=== PATIENT | female | born 1950 | race Caucasian/White ===

== ENCOUNTER 2019-01-04 13:06 | Inpatient (IN) ==
--- NOTE | 2019-01-04 13:57 | Emergency Department Note ---
History of Present Illness General Chief complaint: Fall Time Seen by Provider: 01/04/19 13:27 Source: patient Mode of arrival: EMS Limitations: no limitations History of Present Illness This patient is a 68-year-old female who presents to the emergency department complaining of right hip pain after a fall. She reports that she was at work sweeping the floor and tripped over an easel and fell onto her right hip. She reports severe pain in the right hip when she attempts to move it. She states she has a very mild, dull 1/10 pain at rest. She reports the pain is more in her right groin than hip. She denies any pain in her lower leg. She denies any numbness, weakness or tingling of her extremities. She states the fall was mechanical in nature and was not associated with any dizziness or lightheadedness. She denies any prior injuries to the right hip or legs. Home Medications Home Medications Medication Instructions Recorded Confirmed Type acetaminophen [Tylenol Extra 1,000 mg PO QID PRN 01/04/19 01/04/19 History Strength] biotin 0 mg PO DAILY 01/04/19 01/04/19 History Allergies Allergy/AdvReac Type Severity Reaction Status Date / Time sulfamethoxazole Allergy Severe SWELLING Verified 01/04/19 15:00 [From Bactrim] OF THROAT, RASH trimethoprim [From Bactrim] Allergy Severe SWELLING Verified 01/04/19 15:00 OF THROAT, RASH Past Med/Surg History Medical History No significant past medical history Social History Preferred Language: Serbian Communication Ability: Effective Power Generation Engineer Required: Yes Beliefs That Will Affect Care: None Current Living Situation: Alone current occupational status: employed Other Information That Helps Us Care for You: No Feels Safe at Home: Yes Safety Concerns: Feels Safe At This Time Smoking Status: Former smoker Hx Alcohol Use: Yes Hx Substance Use: No Review of Systems A total of 10 systems reviewed and were otherwise negative Physical Exam Vital Signs Vital Signs - 24 hr 01/04/19 13:11 01/04/19 15:31 01/04/19 15:53 Temperature 36.8 C Temperature Source Oral Sepsis Recent Fever Within 48 Hours No Sepsis New/Unexplained Change in Mental Status No Sepsis Action Taken by Nursing No Action Required Pulse Rate 93 H Pulse Rate [Left] 103 H Pulse Rhythm [Left] Pulse Strength [Left] Respiratory Rate 18 15 Respiratory Effort / Characteristics Non-Labored Spontaneous Respiratory Depth Normal Respiratory Pattern Regular Blood Pressure 142/76 H Blood Pressure [Left Arm] 133/66 Blood Pressure Mean 98 Blood Pressure Mean [Left Arm] 88 Blood Pressure Position [Left Arm] Lying Pulse Oximetry 97 94 Oxygen Delivery Method Room Air Room Air Room Air 01/04/19 16:00 01/04/19 19:04 Temperature 36.7 C Temperature Source Oral Sepsis Recent Fever Within 48 Hours Sepsis New/Unexplained Change in Mental Status Sepsis Action Taken by Nursing Pulse Rate Pulse Rate [Left] 89 89 Pulse Rhythm [Left] Regular Pulse Strength [Left] Normal Respiratory Rate 20 20 Respiratory Effort / Characteristics Non-Labored Spontaneous Non-Labored Spontaneous Respiratory Depth Normal Normal Respiratory Pattern Blood Pressure Blood Pressure [Left Arm] 125/71 119/70 Blood Pressure Mean Blood Pressure Mean [Left Arm] 89 86 Blood Pressure Position [Left Arm] Lying Lying Pulse Oximetry 91 92 Oxygen Delivery Method Room Air Room Air VITALS: Vitals are noted on the nurse's note and reviewed by myself. Vital signs stable. GENERAL: This is a 68-year-old female, in no acute distress, nondiaphoretic, well-developed well-nourished. SKIN: The skin was without rashes, erythema, edema, or bruising. HEAD: Normocephalic atraumatic. EARS: External auditory canals clear, tympanic membranes pearly lamar without erythema or effusion bilaterally. EYES: Pupils equal round and reactive to light and accommodation. Extraocular movements intact. MOUTH: Mucous membranes moist. NECK: Supple without nuchal rigidity. Cervical spine is nontender. HEART: Regular rate and rhythm without murmurs gallops or rubs. LUNGS: Clear to auscultation bilaterally without wheezes, rales or rhonchi. ABDOMEN: Soft, nontender to palpation. MUSCULOSKELETAL: No obvious deformity. No tenderness to palpation of the lateral right hip. Mild tenderness to palpation of the right anterior hip/groin. No tenderness of the knee, distal leg, ankle or foot. Dorsalis pedis pulse 2+. Full range of motion of the ankle and toes. Decreased range of motion of the right hip secondary to patient discomfort. NEURO: Patient was alert and oriented to person place and time. Distal sensation intact over bilateral lower extremities. Course Consultations Consultation #1: Dr. Sanchez - orthopedics Consultation #2: Kaitlin Cash - [facility] hospitalist Administered Medications Acetaminophen (Tylenol) 650 mg PO Q4H PRN PRN Reason: pain/fever Stop: 02/03/19 16:08 Last Admin: 01/04/19 17:47 Dose: 650 mg Documented by: [id number] Hydromorphone HCl (Dilaudid) 1 mg IV Q2H PRN PRN Reason: Pain Stop: 01/18/19 15:44 Last Admin: 01/04/19 19:03 Dose: 1 mg Documented by: [id number] Lactated Ringer's (Lr) 1,000 mls @ 80 mls/hr IV .[id number] LUIS M Stop: 02/03/19 15:44 Last Admin: 01/04/19 17:17 Dose: 80 mls/hr Documented by: [id number] Ondansetron HCl (Zofran) 4 mg IV Q6H PRN PRN Reason: Nausea Stop: 02/03/19 16:08 Last Admin: 01/04/19 20:38 Dose: 4 mg Documented by: [id number] Senna/Docusate Sodium (Senokot S) 2 tab PO HS LUIS M Stop: 02/03/19 20:59 Last Admin: 01/04/19 20:24 Dose: Not Given Documented by: [id number] Discontinued Medications Hydromorphone HCl (Dilaudid) 0.5 mg IV NOW STA Stop: 01/04/19 14:59 Last Admin: 01/04/19 15:09 Dose: 0.5 mg Documented by: [id number] Cefazolin Sodium (Ancef 3000mg) 65 mls @ 130 mls/hr IV PREOP LUIS M; Protocol Stop: 01/04/19 18:00 Last Admin: 01/04/19 20:26 Dose: Not Given Documented by: [id number] Morphine Sulfate (Morphine Sulfate) 4 mg IV NOW STA Stop: 01/04/19 14:26 Last Admin: 01/04/19 14:31 Dose: 4 mg Documented by: [id number] Ondansetron HCl (Zofran) 4 mg IV NOW STA Stop: 01/04/19 14:26 Last Admin: 01/04/19 14:31 Dose: 4 mg Documented by: [id number] Medical Decision Making Differential Diagnosis Differential diagnosis includes femur fracture, pelvic fracture, hip dislocation, contusion, sprain, among others. Home Medications Current Medication List: was personally reviewed by me Laboratory Data Attestation: I reviewed the patient's lab results. Result diagrams: 01/04/19 14:11 01/04/19 14:11 Lab Results 01/04/19 01/04/19 01/04/19 Range/Units 14:11 14:11 14:11 WBC 10.21 (4.8-10.8) K/uL RBC 4.30 (4.2-5.4) M/uL Hgb 13.8 (12.0-16.0) g/dL Hct 41.2 (37-47) % MCV 95.8 (80-100) fL MCH 32.1 (25-34) pg MCHC 33.5 (32-36) g/dL RDW Std Deviation 46.8 H (36.4-46.3) fL RDW Coeff of Chong 13.5 (11.5-14.5) % Plt Count 211 (130-400) K/uL MPV 10.8 H (7.4-10.4) fL Immature Gran % (Auto) 0.4 % Neut % (Auto) 57.2 % Lymph % (Auto) 31.0 % [place] % (Auto) 9.2 % Eos % (Auto) 1.9 % Baso % (Auto) 0.3 % Immature Gran # (Auto) 0.04 H (0.00-0.02) K/uL Neut # (Auto) 5.85 (1.4-6.5) K/uL Lymph # (Auto) 3.16 (1.2-3.4) K/uL [place] # (Auto) 0.94 H (0.11-0.59) K/uL Eos # (Auto) 0.19 (0-0.5) K/uL Baso # (Auto) 0.03 (0-0.2) K/uL PT 10.1 (9.0-12.0) Seconds INR 1.0 (0.9-1.1) APTT 24.7 (21.0-31.0) Seconds PTT Ratio 0.9 Sodium 138 (136-145) mmol/L Potassium 3.8 (3.5-5.1) mmol/L Chloride 107 (98-107) mmol/L Carbon Dioxide 26 (21-32) mmol/L Anion Gap 5.0 (3-11) BUN 16 (7-18) mg/dl Creatinine 0.65 (0.6-1.2) mg/dl Est Cr Clr Drug Dosing 93.0 ml/min Est GFR ( Amer) 105.7 Est GFR (Non-Af Amer) 91.2 BUN/Creatinine Ratio 24.6 H (10-20) Glucose 134 H (70-99) mg/dl Calcium 8.7 (8.5-10.1) mg/dl 25-OH Vitamin D Total (30-100) ng/ml Urine Color Urine Appearance (Clear) Urine pH (4.5-7.5) Ur Specific [place] (1.000-1.030) Urine Protein (Negative) Urine Glucose (UA) (Negative) Urine Ketones (Negative) Urine Blood (Negative) Urine Nitrite (Negative) Urine Bilirubin (Negative) Urine Urobilinogen (Negative) Ur Leukocyte Esterase (Negative) Nasal Screen MRSA (PCR) (Negative) Blood Type Antibody Screen 01/04/19 01/04/19 01/04/19 Range/Units 14:11 14:11 14:45 WBC (4.8-10.8) K/uL RBC (4.2-5.4) M/uL Hgb (12.0-16.0) g/dL Hct (37-47) % MCV (80-100) fL MCH (25-34) pg MCHC (32-36) g/dL RDW Std Deviation (36.4-46.3) fL RDW Coeff of Chong (11.5-14.5) % Plt Count (130-400) K/uL MPV (7.4-10.4) fL Immature Gran % (Auto) % Neut % (Auto) % Lymph % (Auto) % [place] % (Auto) % Eos % (Auto) % Baso % (Auto) % Immature Gran # (Auto) (0.00-0.02) K/uL Neut # (Auto) (1.4-6.5) K/uL Lymph # (Auto) (1.2-3.4) K/uL [place] # (Auto) (0.11-0.59) K/uL Eos # (Auto) (0-0.5) K/uL Baso # (Auto) (0-0.2) K/uL PT (9.0-12.0) Seconds INR (0.9-1.1) APTT (21.0-31.0) Seconds PTT Ratio Sodium (136-145) mmol/L Potassium (3.5-5.1) mmol/L Chloride (98-107) mmol/L Carbon Dioxide (21-32) mmol/L Anion Gap (3-11) BUN (7-18) mg/dl Creatinine (0.6-1.2) mg/dl Est Cr Clr Drug Dosing ml/min Est GFR ( Amer) Est GFR (Non-Af Amer) BUN/Creatinine Ratio (10-20) Glucose (70-99) mg/dl Calcium (8.5-10.1) mg/dl 25-OH Vitamin D Total 11.9 L (30-100) ng/ml Urine Color Yellow Urine Appearance Clear (Clear) Urine pH 6.0 (4.5-7.5) Ur Specific [place] 1.026 (1.000-1.030) Urine Protein Negative (Negative) Urine Glucose (UA) Negative (Negative) Urine Ketones Negative (Negative) Urine Blood Negative (Negative) Urine Nitrite Negative (Negative) Urine Bilirubin Negative (Negative) Urine Urobilinogen Negative (Negative) Ur Leukocyte Esterase Negative (Negative) Nasal Screen MRSA (PCR) (Negative) Blood Type O Negative Antibody Screen NEGATIVE 01/04/19 Range/Units 17:05 WBC (4.8-10.8) K/uL RBC (4.2-5.4) M/uL Hgb (12.0-16.0) g/dL Hct (37-47) % MCV (80-100) fL MCH (25-34) pg MCHC (32-36) g/dL RDW Std Deviation (36.4-46.3) fL RDW Coeff of Chong (11.5-14.5) % Plt Count (130-400) K/uL MPV (7.4-10.4) fL Immature Gran % (Auto) % Neut % (Auto) % Lymph % (Auto) % [place] % (Auto) % Eos % (Auto) % Baso % (Auto) % Immature Gran # (Auto) (0.00-0.02) K/uL Neut # (Auto) (1.4-6.5) K/uL Lymph # (Auto) (1.2-3.4) K/uL [place] # (Auto) (0.11-0.59) K/uL Eos # (Auto) (0-0.5) K/uL Baso # (Auto) (0-0.2) K/uL PT (9.0-12.0) Seconds INR (0.9-1.1) APTT (21.0-31.0) Seconds PTT Ratio Sodium (136-145) mmol/L Potassium (3.5-5.1) mmol/L Chloride (98-107) mmol/L Carbon Dioxide (21-32) mmol/L Anion Gap (3-11) BUN (7-18) mg/dl Creatinine (0.6-1.2) mg/dl Est Cr Clr Drug Dosing ml/min Est GFR ( Amer) Est GFR (Non-Af Amer) BUN/Creatinine Ratio (10-20) Glucose (70-99) mg/dl Calcium (8.5-10.1) mg/dl 25-OH Vitamin D Total (30-100) ng/ml Urine Color Urine Appearance (Clear) Urine pH (4.5-7.5) Ur Specific [place] (1.000-1.030) Urine Protein (Negative) Urine Glucose (UA) (Negative) Urine Ketones (Negative) Urine Blood (Negative) Urine Nitrite (Negative) Urine Bilirubin (Negative) Urine Urobilinogen (Negative) Ur Leukocyte Esterase (Negative) Nasal Screen MRSA (PCR) Negative (Negative) Blood Type Antibody Screen Imaging Data Attestation: I personally reviewed and interpreted this imaging study as follows: Radiologist's Impression: XR femur RT 2V routine DISCUSSION: Comminuted fracture of the right hip including the femoral neck and intertrochanteric region. Slight. Migration of the femoral shaft. Remainder the femur is unremarkable. No additional acute abnormalities appreciated. There is no evidence for soft tissue swelling. IMPRESSION: Comminuted fracture of the right femoral neck and intertrochanteric region. XR pelvis 1-2V routine DISCUSSION: Comminuted fracture of the right femoral neck and intertrochanteric region. Short segment extension to the proximal femoral shaft. No evidence for acetabular protrusion. All remaining bony structures are intact. There is no evidence for soft tissue swelling. IMPRESSION: Comminuted fracture of the right femoral neck and intertrochanteric region ECG Data Attestation: I personally reviewed and interpreted this ECG as follows: Indication: other (preop) Rate (beats per minute): 99 Rhythm: normal sinus Findings: no acute ischemic change and no ectopy Comparison ECG Date: no prior available Blood Pressure Blood Pressure Findings: Normal blood pressure Blood Pressure Disposition: did not require urgent referral MDM Narrative The patient is a 68-year-old female who presents today complaining of right hip pain after a fall. X-ray showed a right intertrochanteric/femoral neck fracture. Patient was given morphine and then Dilaudid for pain in the emergency department. Preoperative studies were ordered. Orthopedics was consulted. The patient was admitted to the medical service for further evaluation and care of her hip fracture. Attending Attestation: I Dalton Shearer MD independently saw and evaluated this patient and agree with history and physical is otherwise documented by the physician cafeteria assistant. See their note for full details. Impression & Plan Closed right femoral fracture Discharge Plan Visit Data *Final* Discharge Date/Time: 01/04/19 15:53 Chief Complaint: Fall ED Provider: Dalton Shearer ED Midlevel Provider: Laina Stephen Discharge Problem: Closed right femoral fracture Patient Disposition: Admitted As Inpatient Discharge Instructions Interventions: ED Discharge Assessment Last Done: 01/04/19 15:53 Discharge Problem: Closed right femoral fracture Qualifiers: Encounter type: initial encounter Femur location: intertrochanteric Fracture alignment: displaced Qualified Code(s): S72.141A - Displaced intertrochanteric fracture of right femur, initial encounter for closed fracture
--- NOTE | 2019-01-04 14:07 | XRay Report ---
XR femur RT 2V routine CLINICAL HISTORY: fall, right hip/pelvic pain trauma. Pain. COMPARISON: None. DISCUSSION: Comminuted fracture of the right hip including the femoral neck and intertrochanteric reg ion. Slight. Migration of the femoral shaft. Remainder the femur is unremarkable. No additional acute abnormalities appreciated. There is no evide nce for soft tissue swelling. IMPRESSION: Comminuted fracture of the right femoral neck and intertrochanteric region. The above report was generated using voice recognition software. It may contain grammatical, syntax or spelling errors. Electronically signed by: Elia Pineda M.D. 01/04/2019 2:05 PM
--- NOTE | 2019-01-04 14:08 | XRay Report ---
XR pelvis 1-2V routine CLINICAL HISTORY: fall, right hip/pelvic pain pain. Trauma. COMPARISON: None. DISCUSSION: Comminuted fracture of the right femoral neck and intertrochanteric region. Short segment extension to the proximal femoral shaft. No evidence for acetabular protrusion. All remaining bony s tructures are intact. There is no evidence for soft tissue swelling. IMPRESSION: Comminuted fracture of the right femoral neck and intertrochanteric region The above report was generated using voice recognition software. It may contain grammatical, syntax or spelling errors. Electronically signed by: Elia Pineda M.D. 01/04/2019 2:06 PM
[2019-01-04] MEDS ORDERED: MoRPHine SULFATE 4 MG/ML 1 ML CARP\\VIAL IV STA (14:25)
[2019-01-04] MEDS ORDERED: ONDANSETRON INJ 2 MG/ML 2 ML VIAL IV STA (14:25)
[2019-01-04 14:26] LABS: Basophils # (auto) 0.03 K/uL (0-0.2); Basophils % (auto) 0.3 %; Eosinophils # (auto) 0.19 K/uL (0-0.5); Eosinophils % (auto) 1.9 %; Hematocrit (blood only) 41.2 % (37-47); Hemoglobin 13.8 g/dL (12.0-16.0); Immature Granulocytes # (auto) 0.04 K/uL (0.00-0.02); Immature Granulocytes % (auto) 0.4 %; Lymphocytes # (auto) 3.16 K/uL (1.2-3.4); Mean Corpuscular Hgb Conc 33.5 g/dL (32-36); Mean Corpuscular Volume 95.8 fL (80-100); Mean Platelet Volume 10.8 fL (7.4-10.4); Monocytes # (auto) 0.94 K/uL (0.11-0.59); Monocytes % (auto) 9.2 %; Neutrophils # (auto) 5.85 K/uL (1.4-6.5); Neutrophils % (auto) 57.2 %; Platelet Count 211 K/uL (130-400); RDW Coefficient of Variation 13.5 % (11.5-14.5); RDW Standard Deviation 46.8 fL (36.4-46.3); White Blood Count 10.21 K/uL (4.8-10.8)
[2019-01-04 14:32] LABS: Partial Thromboplastin Ratio 0.9; Partial Thromboplastin Time 24.7 Seconds (21.0-31.0); Prothrombin Time 10.1 Seconds (9.0-12.0)
[2019-01-04 14:44] LABS: BUN Creatinine Ratio 24.6 (10-20); Calcium 8.7 mg/dl (8.5-10.1); Est GFR (African American) 105.7; Est GFR (Non-African American) 91.2; Potassium 3.8 mmol/L (3.5-5.1)
[2019-01-04] MEDS ORDERED: HYDROmorphone INJ 0.5 MG/0.5 ML SYR IV STA (14:58)
[2019-01-04 15:08] LABS: Appearance Urine Clear (Clear); Bilirubin Urine Negative (Negative); Blood Urine Negative (Negative); Color Urine Yellow; Glucose Urine UA Negative (Negative); Ketones Urine Negative (Negative); Leukocyte Esterase Urine Negative (Negative); Nitrite Urine Negative (Negative); Protein Urine Negative (Negative); Specific Gravity Urine 1.026 (1.000-1.030); Urobilinogen Urine Negative (Negative)
--- NOTE | 2019-01-04 15:43 | History & Physical Report ---
Date of Service January 04, 2019 Assessment & Plan (1) Hip fracture: pt sustained a mechanical fall /tripped and fell on her rt side while cleaning up the floor in [facility] xray of Hip shows : IMPRESSION: Comminuted fracture of the right femoral neck and intertrochanteric region. orthopedics consulted , appreciate input scheduled for ORIF of rt hip tomorrow ordered for NPO past midnight at baseline pt is fairly healthy pt does not have any medical hx of CAD , prior PR , CHF , cardiac arryhmia , Cxray /EKG in ED wnl acceptable risk for surgery /ORIF of rt hip should proceed for surgery tomorrow /no further cardiac studies indicated CODE STATUS FULL CODE DVT PROPHYLAXIS : SCD AND TEDS -PRE OP post op -risk of DVT is high for limited mobility will need pharmachological anticoagulation :Aspirin 81 mg PO BID /or other regimen per ortho protocol Present on Admission?: Yes History of Present Illness Primary Care Provider: Soraida John This is a 68 yo F with no significant past medical hx 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 for art work and landed on her right side denies of any dizzy spell , SOB , chest heaviness or lightheadedness prior or after fall she did not hit her head or lost conciousness experienced severe pain on right hip after arrival to ER , Xray of right hip shows commuted intertrocheteric fx will be admitted on medical floor Ortho consulted for surgical repair /ORIF of hip fx no complain of fever or chills , no cough , no GI or symptom denies of headache, blurred vision 'no numbness or tingling in any part of the body Allergies Allergy/AdvReac Type Severity Reaction Status Date / Time sulfamethoxazole Allergy Severe SWELLING Verified 01/04/19 15:00 [From Bactrim] OF THROAT, RASH trimethoprim [From Bactrim] Allergy Severe SWELLING Verified 01/04/19 15:00 OF THROAT, RASH Home Medications Home Medications Medication Instructions Recorded Confirmed Type acetaminophen [Tylenol Extra 1,000 mg PO QID PRN 01/04/19 01/04/19 History Strength] biotin 0 mg PO DAILY 01/04/19 01/04/19 History Past Med/Surg History Medical History No significant past medical history Social History Preferred Language: Polish Communication Ability: Effective Guest Service Host Required: Yes Beliefs That Will Affect Care: None Current Living Situation: Alone current occupational status: employed Other Information That Helps Us Care for You: No Feels Safe at Home: Yes Safety Concerns: Feels Safe At This Time Smoking Status: Former smoker Hx Alcohol Use: Yes Hx Substance Use: No Review of Systems All systems reviewed & are unremarkable except as noted in HPI & below Physical Exam Vital Signs (Past 24 Hours): Last Vital Signs Temp 36.8 C 01/04/19 13:11 Pulse 103 H 01/04/19 15:31 Resp 15 01/04/19 15:31 BP 133/66 01/04/19 15:31 Pulse Ox 94 01/04/19 15:31 Physical Exam: GENERAL: No sign of distress, HEENT: Sclera nonicteric, pink-purple bilateral equal reactive to light extraocular muscle intact Normal oral mucosa, neck: No JVD, no thyromegaly, trachea midline Lungs: Clear to auscultate, no wheeze or rales Cardiovascular: Regular S1 and S2, no murmur or gallop, no JVD, no lower extremity edema Abdomen: Soft, nontender, bowel sounds active, no hepatosplenomegaly Extremities: No rash or deformity, normal joint, Neuro: No focal neurological deficit, no dysarthria, no facial droop Psych: Alert awake oriented x3: Euthymic Skin: No rash LYMPH NODES: No cervical lymphadenopathy Code Status & VTE Plan Code Status full code VTE Prophylaxis Plan VTE Prophylaxis will be ordered: Yes
--- NOTE | 2019-01-04 15:44 | XRay Report ---
XR chest 1V portable CLINICAL HISTORY: preop hip fx COMPARISON STUDY: No previous studies for comparison. FINDINGS: The bones soft tissues and hemidiaphragms are normal. The cardiomediastinal silhouette is n ormal. The lungs are clear. The pulmonary vasculature is normal. Minimal left basilar atelectasis IMPRESSION: Minimal left basilar atelectasis. Otherwise negative study. The above report was generated using voice recognition software. It may contain grammatical, syntax or spelling errors. Electronically signed by: Elia Pineda M.D. 01/04/2019 3:43 PM
[2019-01-04] MEDS ORDERED: ALUMINUM/MAGNESIUM SUSP 30 ML UDC PO PRN (16:09)
[2019-01-04] MEDS ORDERED: NALOXONE HCL 0.4 MG/1 ML VIAL/CARP IV PRN (16:09)
[2019-01-04] MEDS ORDERED: BISACODYL 10 MG SUPP PR PRN (16:09)
[2019-01-04] MEDS ORDERED: MAGNESIUM HYDROXIDE SUSP 30 ML UDC PO PRN ×2 (16:09)
[2019-01-04] MEDS ORDERED: POLYETHYLENE (MIRALAX) 17 GM PACK PO PRN (16:09)
[2019-01-04] MEDS ORDERED: CEFAZOLIN 3000MG 65 ML IV SCH (16:09)
[2019-01-04] MEDS ORDERED: SOD PHOSPHATE/SOD BIPHOSPHATE ENEMA 132 ML BTL PR PRN (16:09)
--- NOTE | 2019-01-04 16:33 | Orthopedic Consultation ---
Date of Consultation January 04, 2019 Assessment & Plan (1) Closed intertrochanteric fracture of right hip: X-rays show a comminuted fracture of the right intertrochanteric region of the hip. There is small extension of the superior portion of. Thus the femoral neck is intact. Most of this is a basicervical type fracture with extension to the greater trochanter and distally below the lesser trochanter. I discussed with her the extension up into the femoral neck a little bit but this is acting more like a intertrochanteric fracture that I think would heal fine with open reduction internal fixation with a intertrochanteric nail. I did discuss with her the possibility of nonunion or AVN of head version to a hip arthroplasty but this procedure will be much more bone sparing and more smaller procedure. The risk benefits alternatives of procedure were discussed the patient she wished to proceed. She may eat tonight and then be n.p.o. after midnight tonight for plan for ORIF of the right hip tomorrow morning. History of Present Illness Attending Physician: Jordyn Nielsen MD History of Present Illness The patient is a 68-year-old female who works at [employer]. She was sweeping up for tripped over LOOKK and landed onto the right hip. She had immediate pain and inability to bear weight. She was transferred to the emergency room where x-rays were obtained to demonstrate a comminuted intertrochanteric fracture. She denies previous hip problems. She denies any radicular symptoms. Denies any radicular pain. Denies any neurologic symptoms Allergies Allergy/AdvReac Type Severity Reaction Status Date / Time sulfamethoxazole Allergy Severe SWELLING Verified 01/04/19 15:00 [From Bactrim] OF THROAT, RASH trimethoprim [From Bactrim] Allergy Severe SWELLING Verified 01/04/19 15:00 OF THROAT, RASH Home Medications Home Medications Medication Instructions Recorded Confirmed Type acetaminophen [Tylenol Extra 1,000 mg PO QID PRN 01/04/19 01/04/19 History Strength] biotin 0 mg PO DAILY 01/04/19 01/04/19 History Patient History Medical History No significant past medical history Social History current occupational status: employed Feels Safe at Home: Yes Smoking Status: Former smoker Physical Exam Vital Signs (Past 24 Hours): Last Vital Signs Temp 36.8 C 01/04/19 13:11 Pulse 103 H 01/04/19 15:31 Resp 15 01/04/19 15:31 BP 133/66 01/04/19 15:31 Pulse Ox 94 01/04/19 15:31 Constitutional: WD/WN, vitals as above Neck: normal visual inspection Respiratory: normal respiratory effort Cardiovascular: Rate/Rhythm: regular rate Musculoskeletal: Right lower extremity: Palpable dorsalis pedis pulse. Light touch sensation is intact throughout the foot. She is able to move the toes foot and ankle without difficulty. She has pain with internal and external r otation hip. The limb is externally rotated. Results & Data Diagnostic Findings X-rays demonstrate a comminuted right intertrochanteric fracture. A small extension into the superior region of the femoral neck. The inferior region is intact
[2019-01-04] MEDS: LACTATED RINGER'S 1,000 ML IV SCH (17:17)
[2019-01-04] MEDS: ACETAMINOPHEN 325 MG TAB PO PRN (17:47)
[2019-01-04] MEDS: HYDROmorphone INJ 1 MG/ML SYRINGE IV PRN (19:03)
[2019-01-04] MEDS: DOCUSATE SODIUM/SENNA 50/8.6MG TAB PO SCH (20:24)
[2019-01-04] MEDS: ONDANSETRON INJ 2 MG/ML 2 ML VIAL IV PRN (20:38)
[2019-01-04] MEDS ORDERED: METOCLOPRAMIDE HCL INJ 5 MG/ML 2 ML VIAL IV ONE (22:30)
[2019-01-05] MEDS: ACETAMINOPHEN 1,000 MG/100 ML VIAL IV PRN (01:58)
[2019-01-05] MEDS ORDERED: CEFAZOLIN 2000MG 2,000 MG/15 ML SYR IV SCH (06:00)
[2019-01-05] MEDS ORDERED: fentaNYL citrate 100 MCG/2 ML VIAL ONE (07:01)
[2019-01-05] MEDS ORDERED: MIDAZOLAM HCL 1 MG/ML 2ML VIAL ONE (07:01)
[2019-01-05 07:12] LABS: Hematocrit (blood only) 38.4 % (37-47); Hemoglobin 12.6 g/dL (12.0-16.0); Mean Corpuscular Hgb Conc 32.8 g/dL (32-36); Mean Platelet Volume 10.4 fL (7.4-10.4); Platelet Count 200 K/uL (130-400); RDW Coefficient of Variation 13.7 % (11.5-14.5); RDW Standard Deviation 47.7 fL (36.4-46.3); Red Blood Count 4.04 M/uL (4.2-5.4); White Blood Count 8.72 K/uL (4.8-10.8)
--- NOTE | 2019-01-05 07:18 | Anesthesiology Consultation ---
Date of Service January 05, 2019 Assessment & Plan (1) Encounter for pre-operative examination: Chart Review Chart Review: Acceptable Risk for Surgery and Patient NOT seen in Pre Admission Testing Consults Requested none ASA ASA2 Proposed Anesthesia Anesthesia Type: MAC Spinal Risk / Benefits Reviewed With: PT / POA / Parent / Guardian, Accepts Plan and Informed Consent Obtained NPO Date Last Intake of Fluids: 01/04/19 Time Last Intake of Fluids: 23:59 Date Last Intake of Solids: 01/04/19 Time Last Intake of Solids: 23:59 History Surgery Operation Date: 01/05/19 07:30 Proposed Procedures p Right Hip Troch Nail - Cody Sanchez MD Height/Weight Height: 5 ft 3 in Weight: 95.8 kg Allergies Allergy/AdvReac Type Severity Reaction Status Date / Time sulfamethoxazole Allergy Severe SWELLING Verified 01/04/19 15:00 [From Bactrim] OF THROAT, RASH trimethoprim [From Bactrim] Allergy Severe SWELLING Verified 01/04/19 15:00 OF THROAT, RASH Medications Home Medications Medication Instructions Recorded Confirmed Last Taken acetaminophen [Tylenol Extra 1,000 mg PO QID PRN 01/04/19 01/04/19 Unknown Strength] biotin 0 mg PO DAILY 01/04/19 01/04/19 Unknown Active Medications Generic Name Dose Route Start Last Admin Trade Name Freq PRN Reason Stop Dose Admin Acetaminophen 650 mg 01/04/19 16:09 01/04/19 17:47 Tylenol PO 02/03/19 16:08 650 mg Q4H PRN Administration pain/fever Hydromorphone HCl 1 mg 01/04/19 15:36 01/04/19 19:03 Dilaudid IV 01/18/19 15:44 1 mg Q2H PRN Administration Pain Acetaminophen 1,000 mg in 100 mls @ 400 mls/hr 01/04/19 22:18 01/05/19 02:13 Ofirmev IV 02/03/19 22:17 Infused Q8H PRN Infusion Pain or Fever Ondansetron HCl 4 mg 01/04/19 16:09 01/04/19 20:38 Zofran IV 02/03/19 16:08 4 mg Q6H PRN Administration Nausea Senna/Docusate Sodium 2 tab 01/04/19 21:00 01/04/19 20:24 Senokot S PO 02/03/19 20:59 Not Given HS LUIS M Past Medical History Medical History No significant past medical history Social History Smoking Status: Former smoker Hx Alcohol Use: Yes alcohol intake frequency: holidays/special occasions only Hx Substance Use: No Physical Exam Vital Signs Last Vital Signs Temp 36.5 C 01/05/19 13:08 Pulse 93 H 01/05/19 13:08 Resp 18 01/05/19 13:08 BP 148/85 H 01/05/19 13:08 Pulse Ox 98 01/05/19 13:08 Testing Electrocardiogram Date: 01/04/19 Findings: + NSR @ (99) Normal sinus rhythm Nonspecific ST abnormality Abnormal ECG No previous ECGs available Laboratory Results 01/05/19 06:56 01/05/19 06:56 Blood Type O Negative 01/04/19 14:11 Antibody Screen NEGATIVE 01/04/19 14:11 PT 10.1 Seconds (9.0-12.0) 01/04/19 14:11 INR 1.0 (0.9-1.1) 01/04/19 14:11 APTT 24.7 Seconds (21.0-31.0) 01/04/19 14:11 Urine Color Yellow 01/04/19 14:45 Urine Appearance Clear (Clear) 01/04/19 14:45 Urine pH 6.0 (4.5-7.5) 01/04/19 14:45 Ur Specific [place] 1.026 (1.000-1.030) 01/04/19 14:45 Urine Protein Negative (Negative) 01/04/19 14:45 Urine Glucose (UA) Negative (Negative) 01/04/19 14:45 Urine Ketones Negative (Negative) 01/04/19 14:45 Urine Nitrite Negative (Negative) 01/04/19 14:45 Ur Leukocyte Esterase Negative (Negative) 01/04/19 14:45
[2019-01-05] MEDS ORDERED: BUPIVACAINE 0.5 % 5 MG/1 ML PF 10ML VIAL ONE (07:20)
[2019-01-05 07:49] LABS: BUN Creatinine Ratio 22.2 (10-20); Calcium 8.6 mg/dl (8.5-10.1); Creatinine Clr Calc Pharmacy 82.4 ml/min; Est GFR (African American) 99.7; Est GFR (Non-African American) 86.1; Potassium 3.9 mmol/L (3.5-5.1)
[2019-01-05] MEDS: LACTATED RINGER'S 1,000 ML IV SCH ×2 (08:11→13:47)
[2019-01-05] MEDS ORDERED: KETAMINE HCL INJ 50 MG/ML 10 ML VIAL ONE (09:26)
[2019-01-05] MEDS ORDERED: ePHEDrine sulfate 50 MG/ML AMP IV PRN (09:29)
[2019-01-05] MEDS ORDERED: HYDROmorphone INJ 1 MG/ML SYRINGE IV PRN (09:29)
[2019-01-05] MEDS ORDERED: ATROPINE SULFATE 0.1 MG/ML 10ML SYR IV PRN (09:29)
[2019-01-05] MEDS ORDERED: BUPIVACAINE/EPINEPHRINE 0.5% MPF 1:200,000 30 ML VIAL ONE (09:31)
--- NOTE | 2019-01-05 09:32 | History & Physical Bridge Note ---
Date of Service January 05, 2019 History & Physical Bridge Note I have examined the patient, reviewed the History & Physical and in the interval since the performance of the History & Physical I have noted the following changes of clinical significance: no changes noted
[2019-01-05] MEDS ORDERED: SCOPOLAMINE 1.5 MG TDSY ONE (09:33)
[2019-01-05] MEDS ORDERED: CEFAZOLIN 250 MG/ML 1 GM VIAL ONE ×2 (09:50)
[2019-01-05] MEDS ORDERED: SODIUM CHLORIDE 0.9% INJ 10 ML VIAL ONE (09:50)
[2019-01-05] MEDS ORDERED: DEXAMETHASONE SOD INJ 4 MG/ML VIAL ONE (10:09)
[2019-01-05] MEDS ORDERED: ONDANSETRON INJ 2 MG/ML 2 ML VIAL ONE (10:09)
[2019-01-05] MEDS ORDERED: PROPOFOL IV EMULSION 10 MG/ML 20 ML VIAL IV ONE ×2 (10:09→11:00)
[2019-01-05] MEDS ORDERED: LIDOCAINE HCL 2% 2 ML VIAL/AMP(20MG/ML) INFIL ONE (10:09)
[2019-01-05] MEDS ORDERED: GLYCOPYRROLATE 0.2 MG/ML VIAL ONE (10:09)
[2019-01-05] MEDS ORDERED: PHENYLEPHRINE 100MCG/ML 5ML SYR ONE (10:09)
--- NOTE | 2019-01-05 11:34 | Operative Report ---
Post Operative Report Pre & Post Diagnosis Operation Date: 01/05/19 07:30 Pre-Op Diagnosis: RIGHT HIP FRACTURE Post-Op Diagnosis: RIGHT HIP FRACTURE Procedure Operation Date: 01/05/19 07:30 Actual Procedures p Open Reduction Internal Fixation Right Hip with an intramedullary trochanteric fixation nail- Cody Sanchez MD Surgeon Cody Sanchez MD Machine Hamper Maker None Estimated Blood Loss 100 Findings Consistent with Post-Op Diagnosis Specimens None Drains None Anesthesia Type Spinal MAC Disposition Disposition: Recovery Room Indications The patient is a 60-year-old female sustained a fall onto the right hip. X-rays demonstrate a comminuted right intertrochanteric fracture. She wishes to proceed with open reduction internal fixation. Description of Procedure Risks benefits and alternatives of surgery including but not limited to infection, DVT, PE, pain, stiffness, need for surgery, damage to blood vessels, damage to nerves or risks of anesthesia, were discussed with the patient and her family and they wished to proceed. Patient was identified in the laterality was confirmed and marked. They received a preoperative antibiotic. The patient was transferred to the fracture table. The operative limb was placed in traction and the well leg was placed in a well leg ramirez that was well-padded. The arms were well-padded and placed out of the way of the surgi hattie field. I confirmed reduction of the fracture with fluoroscopy with the patient's fracture table and made adjustments to fracture table alignment is necessary to reduce the fracture appropriately. The hip was then prepped and draped in the usual standard manner with ChloraPrep. I made a longitudinal incision proximal to the greater trochanter. I sharply incised through the skin and then used Bovie electrocautery to achieve hemostasis. I incised through the fascia and then bluntly dissected down to the tip of the greater trochanter. Under fluoroscopic guidance I placed a guide pin into the greater trochanter and ensured proper placement on both AP and lateral fluoroscopy views. Once I was satisfied with the position of the guide. I advanced this distally. I then overreamed with the 17 mm proximal reamer. I then placed a Synthes trochanteric fixation nail into position. The size of the nail was a intermediate sized nail 12 mm in diameter. Then I placed the guide arm onto the nail insertion device made a stab incision more distally and then placed the drill guide for the helical blade. I adjusted the position of the nail as necessary to ensure that the guidepin was center center in the femoral head. Once I was satisfied with the position of the pin advanced it to the appropriate position of the femoral head. I then measured and then reamed the lateral cortex and then reamed down into the femoral head. I then inserted a size [address] I then locked the set screw proximally and then compressed the fracture. Then through a stab incision I placed a interlocking screw through the drill guide. I confirmed hardware placement and maintenance of reduction on AP and lateral fluoroscopy views. Wounds were then thoroughly irrigated. The fascia was closed with interrupted #1 Vicryl suture. Subcutaneous tissues closed with interrupted 2-0 Vicryl suture and the skin with cyn. Sterile dressings applied. All needle and sponge counts were correct at the end of the procedure the patient was transferred to the PACU in stable condition without apparent complication. I attest to the content of the Intraoperative Record and any orders documented therein. Any exceptions are noted below.
--- NOTE | 2019-01-05 11:45 | Fluoroscopy Report ---
FL hip RT 2-3V CLINICAL HISTORY: RIGHT HIP IM GOPI COMPARISON STUDY: Right femur 01/04/2019. FLUOROSCOPY TIME: 1 minute and 50 seconds. FINDINGS: 5 fluoroscopic spot images of the right hip were submitted. There is a proximal femoral int ramedullary gopi with interlocking femoral neck pin. This traverses the intertrochanteric fracture. Th e alignment is near-anatomic. The hardware is intact. IMPRESSION: Fluoroscopy provided for internal fixation of a right hip fracture. Electronically signed by: Michael Kemp M.D. 01/05/2019 11:44 AM
[2019-01-05] MEDS ORDERED: NALOXONE HCL 0.4 MG/1 ML VIAL/CARP IV PRN (12:41)
--- NOTE | 2019-01-05 13:21 | Anesthesiology Progress Note ---
Date of Service January 05, 2019 Anesthesia Post Procedure Vital Signs Vital Signs: Temp Pulse Pulse Pulse Pulse Resp BP 01/05/19 13:08 36.5 C 93 H 18 148/85 H 01/05/19 12:30 37.0 C 93 H 143/87 H 01/05/19 12:15 89 16 134/88 01/05/19 12:05 88 18 133/77 01/05/19 11:55 88 18 135/70 01/05/19 11:45 89 18 112/72 01/05/19 11:38 36.7 C 93 H 18 119/55 L 01/05/19 08:23 36.9 C 97 H 14 152/82 H 01/05/19 06:54 36.7 C 96 H 17 138/72 01/04/19 23:26 36.9 C 89 18 126/77 01/04/19 19:04 89 20 119/70 01/04/19 16:00 36.7 C 89 20 125/71 01/04/19 15:31 103 H 15 133/66 Pulse Ox 01/05/19 13:08 98 01/05/19 12:30 94 01/05/19 12:15 96 01/05/19 12:05 96 01/05/19 11:55 99 01/05/19 11:45 100 01/05/19 11:38 99 01/05/19 08:23 95 01/05/19 06:54 92 01/04/19 23:26 95 01/04/19 19:04 92 01/04/19 16:00 91 01/04/19 15:31 94 Pain Intensity Right Hip: Pain Intensity: 5 Notes Mental Status: alert / awake / arousable Patient Amnestic to Procedure: Yes Nausea / Vomiting: adequately controlled Pain: adequately controlled Airway Patency, RR, SpO2: stable & adequate BP & HR: stable & adequate Hydration State: stable & adequate Neuraxial Anesthesia: was administered and sensory block is resolving Anesthetic Complications: no major complications apparent and Pt Satisfied with anesthetic care
[2019-01-05] MEDS: HYDROmorphone INJ 1 MG/ML SYRINGE IV PRN ×2 (16:30→20:59)
--- NOTE | 2019-01-05 18:04 | Hospitalist Progress Note ---
Date of Service January 05, 2019 Assessment & Plan (1) Hip fracture: S/P Open Reduction Internal Fixation Right Hip with an intramedullary trochanteric fixation nail- by Dr Sanchez, POD # 1 recovering well post op ordered for PT/OT pain adequately controlled with current pain meds pt sustained a mechanical fall /tripped and fell on her rt side while cleaning up the floor in day care xray of Hip shows : IMPRESSION: Comminuted fracture of the right femoral neck and intertrochanteric region. orthopedics consulted , appreciate input CODE STATUS FULL CODE DVT PROPHYLAXIS : SCD AND TEDS -PRE OP post op -risk of DVT is high for limited mobility will need pharmachological anticoagulation :Aspirin 81 mg PO BID /or other regimen per ortho protocol Subjective s/p right hip surgery today no complain of SOB , chest pain or fever pain on right hip improved after surgery/except at the surgical incision site Physical Exam Vital Signs (Past 24 Hours): Last Vital Signs Temp 36.9 C 01/05/19 15:41 Pulse 100 H 01/05/19 15:41 Resp 16 01/05/19 17:52 BP 167/83 H 01/05/19 15:41 Pulse Ox 96 01/05/19 15:41 Physical Exam: GENERAL: No sign of distress, HEENT: Sclera nonicteric, pink-purple bilateral equal reactive to light extraocular muscle intact Normal oral mucosa, neck: No JVD, no thyromegaly, trachea midline Lungs: Clear to auscultate, no wheeze or rales Cardiovascular: Regular S1 and S2, no murmur or gallop, no JVD, no lower extremity edema Abdomen: Soft, nontender, bowel sounds active, Extremities: S/P Rt hip surgery Neuro: No focal neurological deficit, no dysarthria, no facial droop Psych: Alert awake oriented x3: Euthymic Skin: No rash LYMPH NODES: No cervical lymphadenopathy
[2019-01-05] MEDS: CEFAZOLIN 2000MG 2,000 MG/15 ML SYR IV SCH (18:05)
[2019-01-05] MEDS: DOCUSATE SODIUM/SENNA 50/8.6MG TAB PO SCH (21:31)
[2019-01-06] MEDS: HYDROmorphone INJ 1 MG/ML SYRINGE IV PRN (00:26)
[2019-01-06] MEDS: CEFAZOLIN 2000MG 2,000 MG/15 ML SYR IV SCH (01:58)
[2019-01-06] MEDS: LACTATED RINGER'S 1,000 ML IV SCH (01:58)
[2019-01-06] MEDS: OXYCODONE HCL IR 5 MG TAB (IMMEDIATE RELEASE) PO PRN ×4 (05:43→20:29)
[2019-01-06 07:39] LABS: Basophils # (auto) 0.01 K/uL (0-0.2); Basophils % (auto) 0.1 %; Eosinophils # (auto) 0.09 K/uL (0-0.5); Hematocrit (blood only) 34.7 % (37-47); Hemoglobin 11.2 g/dL (12.0-16.0); Immature Granulocytes # (auto) 0.02 K/uL (0.00-0.02); Immature Granulocytes % (auto) 0.2 %; Lymphocytes # (auto) 2.59 K/uL (1.2-3.4); Lymphocytes % (auto) 28.5 %; Mean Corpuscular Hgb Conc 32.3 g/dL (32-36); Mean Corpuscular Volume 97.5 fL (80-100); Mean Platelet Volume 10.7 fL (7.4-10.4); Monocytes # (auto) 1.15 K/uL (0.11-0.59); Monocytes % (auto) 12.6 %; Neutrophils # (auto) 5.24 K/uL (1.4-6.5); Neutrophils % (auto) 57.6 %; Platelet Count 162 K/uL (130-400); RDW Coefficient of Variation 13.9 % (11.5-14.5); RDW Standard Deviation 49.9 fL (36.4-46.3); Red Blood Count 3.56 M/uL (4.2-5.4)
[2019-01-06 08:05] LABS: BUN Creatinine Ratio 23.8 (10-20); Est GFR (African American) 93.4; Est GFR (Non-African American) 80.6; Potassium 4.2 mmol/L (3.5-5.1)
[2019-01-06] MEDS: ACETAMINOPHEN 1,000 MG/100 ML VIAL IV PRN ×2 (08:15→22:05)
--- NOTE | 2019-01-06 09:15 | Orthopedic Progress Note ---
Date of Service January 06, 2019 Assessment & Plan (1) Closed intertrochanteric fracture of right hip: POD #1, Right hip ORIF Medium Troch Nail PT/ OT- WBAT DVT proph- Lovenox D/C planning- as per primary team, likely rehab or SNF as she has multiple steps and lives alone. Subjective POD #1, Having some hip pain. Denies SOB, CP, N/V. Physical Exam Vital Signs (Past 24 Hours): Last Vital Signs Temp 37.0 C 01/06/19 07:49 Pulse 85 01/06/19 07:49 Resp 18 01/06/19 07:49 BP 133/67 01/06/19 07:49 Pulse Ox 92 01/06/19 07:49 Physical Exam: Dressings c/d/i, no drainage, toes and ankle mobile, no calf tenderness, A&Ox3. VSS.
[2019-01-06] MEDS: ENOXAPARIN INJ 40 MG/0.4 ML SYR SQ SCH (12:20)
--- NOTE | 2019-01-06 14:15 | Anesthesiology Progress Note ---
Date of Service January 06, 2019 Anesthesia Post Procedure Vital Signs Vital Signs: Temp Pulse Pulse Resp BP Pulse Ox Pulse Ox 01/06/19 12:07 37.0 C 92 H 22 127/79 92 01/06/19 11:17 92 01/06/19 07:49 37.0 C 85 18 133/67 92 01/06/19 05:39 94 01/06/19 04:00 36.8 C 96 H 18 112/69 91 01/05/19 23:05 36.8 C 98 H 18 144/68 H 92 01/05/19 19:33 37.4 C 98 H 19 130/78 91 01/05/19 17:52 16 01/05/19 15:41 36.9 C 100 H 16 167/83 H 96 01/05/19 14:39 36.8 C 100 H 18 164/81 H 96 Pain Intensity Right Hip: Pain Intensity: 6 Notes Mental Status: alert / awake / arousable Patient Amnestic to Procedure: Yes Nausea / Vomiting: adequately controlled Pain: adequately controlled Airway Patency, RR, SpO2: stable & adequate BP & HR: stable & adequate Hydration State: stable & adequate Neuraxial Anesthesia: was administered and sensory block resolved Anesthetic Complications: no major complications apparent and Pt Satisfied with anesthetic care
--- NOTE | 2019-01-06 15:41 | Hospitalist Progress Note ---
Date of Service January 06, 2019 Assessment & Plan (1) Hip fracture: S/P Open Reduction Internal Fixation Right Hip with an intramedullary trochanteric fixation nail- by Dr Sanchez, POD #2 recovering well post op per Ortho wt bearing as tolerated with walker out pt follow up with Ortho in 2 weeks pt will benefit with rehab ( has 10 steps to get into her appointment ) ordered for PT/OT pain adequately controlled with current pain meds pt sustained a mechanical fall /tripped and fell on her rt side while cleaning up the floor in day care xray of Hip shows : IMPRESSION: Comminuted fracture of the right femoral neck and intertrochanteric region. orthopedics consulted , appreciate input CODE STATUS FULL CODE DVT PROPHYLAXIS : sub q Lovenox DISPOSITION: plan to discharge to rehab when accepted Subjective sitting up on chair feels much better rt hip pain with movement no fever or chills Physical Exam Vital Signs (Past 24 Hours): Last Vital Signs Temp 36.8 C 01/06/19 15:21 Pulse 91 H 01/06/19 15:21 Resp 18 01/06/19 15:21 BP 136/78 01/06/19 15:21 Pulse Ox 94 01/06/19 15:21 Physical Exam: GENERAL: No sign of distress, HEENT: Sclera nonicteric, pink-purple bilateral equal reactive to light extraocular muscle intact Normal oral mucosa, neck: No JVD, no thyromegaly, trachea midline Lungs: Clear to auscultate, no wheeze or rales Cardiovascular: Regular S1 and S2, no murmur or gallop, no JVD, no lower extremity edema Abdomen: Soft, nontender, bowel sounds active, no hepatosplenomegaly Extremities: s/p rt hip surgery Neuro: No focal neurological deficit, no dysarthria, no facial droop Psych: Alert awake oriented x3: Euthymic Skin: No rash LYMPH NODES: No cervical lymphadenopathy
[2019-01-06] MEDS: POLYETHYLENE (MIRALAX) 17 GM PACK PO SCH (20:29)
[2019-01-06] MEDS: DOCUSATE SODIUM 100 MG CAP PO SCH (20:29)
[2019-01-06] MEDS: DOCUSATE SODIUM/SENNA 50/8.6MG TAB PO SCH (20:29)
[2019-01-07] MEDS: OXYCODONE HCL IR 5 MG TAB (IMMEDIATE RELEASE) PO PRN ×3 (03:28→16:52)
--- NOTE | 2019-01-07 07:13 | Orthopedic Progress Note ---
Date of Service January 07, 2019 Assessment & Plan (1) Closed intertrochanteric fracture of right hip: POD #2, Right hip ORIF Medium Troch Nail PT/ OT- WBAT DVT proph- Lovenox D/C planning- as per primary team, likely rehab or SNF as she has multiple steps and lives alone. Subjective POD #2, Having some hip pain. Denies SOB, CP, N/V. Has been ambulating. Physical Exam Vital Signs (Past 24 Hours): Last Vital Signs Temp 37.3 C 01/07/19 06:13 Pulse 93 H 01/07/19 06:13 Resp 18 01/07/19 06:13 BP 134/73 01/07/19 06:13 Pulse Ox 97 01/07/19 06:13 Physical Exam: Incision c/d/i, no erythema or drainage. Toes mobile, no calf t enderness. Sensation and n/v status intact.
[2019-01-07] MEDS: POLYETHYLENE (MIRALAX) 17 GM PACK PO SCH ×3 (07:55→20:01)
[2019-01-07] MEDS: DOCUSATE SODIUM 100 MG CAP PO SCH ×2 (07:55→20:01)
[2019-01-07] MEDS: ENOXAPARIN INJ 40 MG/0.4 ML SYR SQ SCH (12:00)
--- NOTE | 2019-01-07 16:08 | Hospitalist Progress Note ---
Date of Service January 07, 2019 Assessment & Plan (1) Hip fracture: S/P Open Reduction Internal Fixation Right Hip with an intramedullary trochanteric fixation nail- by Dr Sanchez, POD #3 recovering well post op per Ortho wt bearing as tolerated with walker referral made to [facility] waiting for insurance approval out pt follow up with Ortho in 2 weeks DVT prophylaxis with Aspirin 81 mg BID for 30 days pt sustained a mechanical fall /tripped and fell on her rt side while cleaning up the floor in day care xray of Hip shows : IMPRESSION: Comminuted fracture of the right femoral neck and intertrochanteric region. orthopedics consulted , appreciate input CODE STATUS FULL CODE DVT PROPHYLAXIS : sub q Lovenox will be discharged with Aspirin 81 mg BID for 30 days at rehab DISPOSITION: plan to discharge to rehab /[facility] tomorrow after insurance approval Family will provide transportation Subjective sitting up on chair has minimum pain on rt hip area no other complain waiting for insurance approval for acute rehab Physical Exam Vital Signs (Past 24 Hours): Last Vital Signs Temp 37.5 C 01/07/19 15:33 Pulse 96 H 01/07/19 15:06 Resp 19 01/07/19 15:06 BP 136/79 01/07/19 15:06 Pulse Ox 94 01/07/19 15:06 Physical Exam: GENERAL: No sign of distress, HEENT: Sclera nonicteric, pink-purple bilateral equal reactive to light extraocular muscle intact Normal oral mucosa, neck: No JVD, no thyromegaly, trachea midline Lungs: Clear to auscultate, no wheeze or rales Cardiovascular: Regular S1 and S2, no murmur or gallop, no JVD, no lower extremity edema Abdomen: Soft, nontender, bowel sounds active, no hepatosplenomegaly Extremities: s/p Rt hip repair Neuro: No focal neurological deficit, no dysarthria, no facial droop Psych: Alert awake oriented x3: Euthymic Skin: No rash LYMPH NODES: No cervical lymphadenopathy
[2019-01-07] MEDS: DOCUSATE SODIUM/SENNA 50/8.6MG TAB PO SCH (20:56)
[2019-01-08] MEDS: OXYCODONE HCL IR 5 MG TAB (IMMEDIATE RELEASE) PO PRN (03:23)
[2019-01-08] MEDS: ACETAMINOPHEN 325 MG TAB PO PRN ×2 (09:08→13:16)
[2019-01-08] MEDS: DOCUSATE SODIUM 100 MG CAP PO SCH (09:09)
[2019-01-08] MEDS: ONDANSETRON INJ 2 MG/ML 2 ML VIAL IV PRN (09:10)
--- NOTE | 2019-01-08 11:49 | Hospitalist Progress Note ---
Date of Service January 08, 2019 Assessment & Plan (1) Hip fracture: Mechanical Fall Right Hip Fracture S/P ORIF POD # [address] Sanchez X ray:: Comminuted fracture of the right femoral neck and intertrochanteric region Pain is controlled Appreciate Orthopedics Input Weight bearing as tolerated with walker Planned to be discharged to [facility] Needs Follow up with Orthopedics in 2 weeks Continue Aspirin 81 mg BID for 30 days for DVT Prophylaxis Code Status Full Code DVT Px: SQ Lovenox Disposition: Plan to discharge to Rehab facility Subjective Patient is seen and examined at bedside Patent feels nauseous earlier today Denies chest pain, SOB, dizziness, abd pain Right hip pain is controlled No other complaints Physical Exam Vital Signs (Past 24 Hours): Last Vital Signs Temp 36.9 C 01/08/19 11:02 Pulse 91 H 01/08/19 06:58 Resp 18 01/08/19 06:58 BP 119/76 01/08/19 06:58 Pulse Ox 93 01/08/19 06:58 Physical Exam: Physical Exam: Vitals signs as noted above General Appearance:t Obese, no apparent distress Head: normocephalic, Atraumatic Eyes: normal inspection, EOMI Neck: supple, Trachea midline Respiratory/Chest: Normal breath sounds, CTA Cardiovascular: S1, S2, No murmur Abdomen/GI:Soft, Non tender, Bowel sounds present Extremities/Musculoskelatal:normal inspection, no edema, Right Hip surgical site in cyn Neurologic/Psych:AAOX3, grossly no focal neurological deficits Skin: normal color, warm
--- NOTE | 2019-01-08 11:56 | Discharge Summary ---
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 -she was cleaning the floor while sweeping and walking backwards she tripped on an Easel for art work and landed on her right side denies of any dizzy spell , SOB , chest heaviness or lightheadedness prior or after fall she did not hit her head or lost conciousness experienced severe pain on right hip after arrival to ER , Xray of right hip shows commuted intertrocheteric fx will be admitted on medical floor Ortho consulted for surgical repair /ORIF of hip fx no complain of fever or chills , no cough , no GI or symptom denies of headache, blurred vision 'no numbness or tingling in any part of the body Admission Exam Per Admitting Provider GENERAL: No sign of distress, HEENT: Sclera nonicteric, pink-purple bilateral equal reactive to light extraocular muscle intact Normal oral mucosa, neck: No JVD, no thyromegaly, trachea midline Lungs: Clear to auscultate, no wheeze or rales Cardiovascular: Regular S1 and S2, no murmur or gallop, no JVD, no lower extremity edema Abdomen: Soft, nontender, bowel sounds active, no hepatosplenomegaly Extremities: No rash or deformity, normal joint, Neuro: No focal neurological deficit, no dysarthria, no facial droop Psych: Alert awake oriented x3: Euthymic Skin: No rash LYMPH NODES: No cervical lymphadenopathy Principal Diagnosis Discharge Information Discharge Diagnosis RIGHT HIP FRACTURE S/P FALL Discharge Goals Decrease discomfort,Improve disease control, Improve function Discharge Activity Limitations Resume your previous activity Discharge Data Allergies Allergy/AdvReac Type Severity Reaction Status Date / Time sulfamethoxazole Allergy Severe SWELLING Verified 01/04/19 15:00 [From Bactrim] OF THROAT, RASH trimethoprim [From Bactrim] Allergy Severe SWELLING Verified 01/04/19 15:00 OF THROAT, RASH Consultations 01/04/19 14:39 ED Decision to Admit Stat 01/04/19 15:38 Consult Orthopedic Surgery Stat 01/04/19 16:09 Consult Case Management - Discharge Planning Routine Consult Case Management - Discharge Planning Routine 01/05/19 12:41 Consult Case Management - Discharge Planning Routine Procedures Performed Operation Date: 01/05/19 07:30 Actual Procedures p Open Reduction Internal Fixation Right Hip - Cody Sanchez MD Pelvic X ray: Comminuted fracture of the right femoral neck and intertrochanteric region CXR: Minimal left basilar atelectasis. Otherwise negative study. Ordered Studies 01/05/19 08:00 FL fluoroscopy <1hr Routine FL hip RT 2-3V Routine Hospital Course (1) Hip fracture: Mechanical Fall Right Hip Fracture S/P ORIF POD # [address] Sanchez X ray:: Comminuted fracture of the right femoral neck and intertrochanteric region Pain is controlled Appreciate Orthopedics Input Weight bearing as tolerated with walker Planned to be discharged to [facility] Follow up with Orthopedics in 2 weeks Continue Aspirin 81 mg BID for 30 days for DVT Prophylaxis Code Status Full Code DVT Px: SQ Lovenox Disposition: Plan to discharge to Rehab facility Total Time Total Time Spent Total Time Spent (In Minutes): 35 minutes Total Time Includes: Examination of the Patient, Discharge Planning, Medication Reconciliation, Communication With Other Providers and Other Discharge Plan Discharge Items Patient Disposition: Transfer Inpatient Rehab Fac Reason For Visit: HIP FRACTURE Discharge Diagnosis: RIGHT HIP FRACTURE S/P FALL Discharge Goals: Decrease discomfort, Improve disease control and Improve function Activity: Resume your previous activity Non-emergency contact: Primary Care Provider and Surgeon Call non-emergency contact if: you have any medication questions, your symptoms worsen, your pain is not controlled, your pain is worsening, your pain is unusual for you, your pain is concerning for you, you have a fever, your wound has increased redness, your wound has increased drainage and your wound pain has increased Follow-up/Referrals: Soraida John [Primary Care Provider] - Cody Sanchez MD [Surgeon] - (ORTHOPEDICS FOLLOW UP IN 2 WEEKS ) Diet: Regular Addtl Provider Instructions: Follow up with your PCP in 1 week after being discharged from rehab facility FOLLOW UP WITH ORTHOPEDICS IN 2 WEEKS CONTINUE PHYSICAL THERAPY /OCCUPATIONAL THERAPY AT [facility] DVT PROPHYLAXIS ASPIRIN 81 MG BY MOUTH TWICE DAILY FOR 1 MONTH TAKE WITH FULL STOMACH UOC DISCHARGE INSTRUCTIONS: HIP FRACTURE SELF CARE INSTRUCTIONS: A. You are to ambulate with a walker or crutches for approximately 6 weeks. B. You are WEIGHT BEARING TOLERATED on your operative lower extremity for at least 6 weeks. C. Wear low heeled shoes with non-slip soles D. Be sure that your floors are free of things that could trip you throw rugs, electrical cords, and small objects. Avoid wet and waxed floors, especially with crutches/walker/cane. E. Try to walk several times a day with rest periods between. F. You may shower 48 hours after surgery and get the incision area wet, but DO NOT soak or submerge incision area in water. (No baths, swimming pools, hot tubs) G. You may have a large, band-aid like dressing over your incision (Aquacel). This will remain on your incision for 7 days, and then can be removed. You CAN shower with this on. If incision is leaking through the dressing, please call the office . H. Do NOT apply soap or any ointment/lotions directly over incision. I. You may use ice as needed to operative site. SPECIAL CARE INSTRUCTIONS: VERY IMPORTANT TO READ AND REVIEW A. You may be at risk for phlebitis or blood clots. a. Wear surgical stockings (ADRYAN hose) for 2 weeks after surgery to improve circulation and reduce swelling. b. Take LOVENOX 40mg SQ daily for 4 weeks or as directed. This is your blood thinner. c. If you are on Coumadin- you will have daily/weekly blood work to monitor your levels. This will be done by either your family physician/centerless grinder tender (if you are on Coumadin chronically) versus your orthopedic surgeon. Expect a phone call the day of or the day after your blood work is drawn to adjust your dose accordingly. B. There are a few signs you need to watch for after you are home. Call [facility] at [phone] if you experience any of the following: a. If you have a temperature of 101 degrees or higher. b. Sudden increase in pain in your hip not relieved by rest or pain medication. c. Any fluid or drainage from the incision; redness of the incision. d. Shortness of breath or chest pain. C. Call your physician if: a. Temperature is greater than 101 degrees (F). b. Pain is not relieved by prescribed pain medications. c. Increase drainage or redness from incision. d. Unanswered questions or concerns. D. Pain Medication: a. You will be prescribed pain medication upon discharge that should last till your first post-operative appointment. b. If you experience nausea and/or skin rash, discontinue this medication and contact our office for an alternative medication. c. Caution- narcotic pain medication can cause constipation. FOLLOW UP VISIT: Please call [facility] at [phone] to schedule a follow up appointment 10-14 days from the date of your surgery date. Prescriptions: New aspirin 81 mg tablet,delayed release (DR/EC) 81 mg PO BID 30 Days Qty: 60 RF: 0 polyethylene glycol 3350 [Miralax] 17 gram Powder In Packet 17 g PO TID PRN (Reason: Constipation) 30 Days Qty: 30 RF: 0 docusate sodium 100 mg Capsule 100 mg PO BID 30 Days Qty: 60 RF: 0 oxycodone 5 mg Tablet 5 mg PO Q8H PRN (Reason: pain) 2 Days Qty: 6 RF: 0 Continued acetaminophen [Tylenol Extra Strength] 500 mg Tablet 1,000 mg PO QID PRN (Reason: Pain) RF: 0 biotin 1 mg Tablet PO DAILY RF: 0 Stand-Alone Forms: [facility] [employer]/Other Patient Handouts: Fx Hip, Fx Hip Common Questions, Surgery Fx Hip Hospital After, Surgery Fx Hip Home Recovery, Fx Femur ORIF Discharge Orders: Discharge Order (Routine); Ordered 01/08/19 Ordered By: Tyler Carty Skilled Items Patient informed of condition?: Yes DNR: No Discharge Level of Care: Skilled Communicable Disease: No Discharge Prognosis: Stable Admission Data Admit Date/Time: 01/04/19 15:36 Attending Provider: Tyler Carty Admit Provider: Jordyn Nielsen Primary Care Provider: Soraida John Other Providers: Jordyn Nielsen ; Cody Sanchez Service: Surgical Services Other Interventions: Discharge Summary Assessment (RN) Last Done: 01/08/19 12:02 DC Date/Time DO NOT enter until pt leaves facility: 01/08/19 15:09
[2019-01-08] MEDS: POLYETHYLENE (MIRALAX) 17 GM PACK PO SCH ×2 (12:58→13:00)
[2019-01-08] MEDS: ENOXAPARIN INJ 40 MG/0.4 ML SYR SQ SCH (13:17)
--- NOTE | 2019-01-08 13:28 | Orthopedic Progress Note ---
Date of Service January 08, 2019 Assessment & Plan (1) Closed intertrochanteric fracture of right hip: POD #3, Right hip ORIF Medium Troch Nail PT/ OT- WBAT DVT proph- Lovenox D/C planning- as per primary team, likely rehab or SNF as she has multiple steps and lives alone. Orthopedically stable, will sign off, discharge instructions documented. Will need to follow-up in 10 [address] bernal, Subjective Patient seen at bedside sitting in chair, comfortable, complaining of intermittent headache and nausea controlled with Zofran and Tylenol. No acute issues overnight. Pain well controlled. Physical Exam Vital Signs (Past 24 Hours): Last Vital Signs Temp 36.9 C 01/08/19 12:02 Pulse 85 01/08/19 12:02 Resp 18 01/08/19 12:02 BP 128/76 01/08/19 12:02 Pulse Ox 93 01/08/19 12:02 Physical Exam: RLE NVSI +EHL/FHL/TA/GS SILT grossly, +2 DP pulse, compartments soft NT, incision clean dry and intact.. Constitutional: WD/WN, vitals as above
== END 2019-01-08 15:09 | DRG 482 ==
LOC: ED 13:06 → SUATTDRO 15:36 → 3N 15:36

== ENCOUNTER 2019-06-24 05:28 | Inpatient (IN) ==
[2019-06-24] MEDS ORDERED: SODIUM CHLORIDE 0.9% 1000ML 1,000 ML IV ONE (05:48)
[2019-06-24] MEDS ORDERED: LORazepam 1 MG/2 ML VIAL IV STA (05:48)
[2019-06-24] MEDS ORDERED: MoRPHine SULFATE 4 MG/ML 1 ML CARP\\VIAL IV STA ×2 (05:48→06:33)
--- NOTE | 2019-06-24 05:56 | Emergency Department Note ---
ED Provider Note Name: Arely Dye Age: 68 F Arrives Via: POV Informant: Patient, Daughter CC: Epigastric Pain HPI: 68 female arrives for evaluation of epigastric pain. Patient notes around 11p this evening starting to get epigastric pain. Gradually worsening throughout night. Radiates through to back. Associated with nausea. Worse with any movement or deep breath. Better with staying still. No fevers, chills, vomiting, cp, sob, syncope, rashes, urinary/bowel symptoms, headache, neck pain, nor other symptoms. No medications prior to arrival. This has never occurred previously. No trauma nor injuries. No previous abdominal surgery other than she had tubal ligation years ago. ROS: See above HPI for pertinent positives & negatives. A total of 10 systems reviewed and were otherwise negative. Past Medical History: None Past Surgical History: Right Hip Fracture, Tubal Ligation Family History: Mother and grandmother with HTN Social History: Previous smoker. Works at a day care. No etoh nor drug use Home Medications: None Allergies Bactrim Physical: Vitals: BP 162/93, P 113, R 26, O2 97%, Temp 36.2 Exam: GENERAL: Patient is very uncomfortable appearing and in severe distress. Writhing all over bed EYES: No scleral icterus, unremarkable pupils. ENT: Mucous membranes moist, no nasal congestion. NECK: No masses appreciated, no meningismus, trachea is midline. RESPIRATORY: No dyspnea. Clear to auscultation and equal bilaterally. No wheeze, no rhonchi. CARDIOVASCULAR: Regular rate and rhythm. No murmurs, rubs, gallops appreciated. GASTROINTESTINAL: Exquisite TTP over epigastrium and RUQ. Otherwise abdomen soft, non-tender, no peritonitis. Bowel sounds positive. No masses appreciated. BACK: No midline tenderness, no CVA tenderness EXTREMITIES: Normal motion all extremities, no cyanosis, no edema. NEUROLOGIC: Alert and oriented, no acute motor or sensory deficits, no focal weakness, cranial nerves grossly intact. SKIN: No rash, no jaundice, no diaphoresis. ED Course: Prior Medical Record, Triage/Nursing Notes, Medications, Allergies reviewed by Me Vital Signs: reviewed and remarkable for HTN, Tach Labs: Reviewed and remarkable for elevated LFTs w elevated bili, mild wbc elevation Interventions: Saline lock, morphine 4mg IV x 2, Ativan 1mg IV, Zofran 4mg IV, NSS bolus 1 L IV, Mefoxin 2gm IV Imaging: Radiologist interpretation reviewed by me: A "1. Distended gallbladder containing a considerable number of gallbladder polyps, sludge, versus gallstones. 2. Distended biliary ductal system with a maximum extra hepatic common bile duct dimension of 2 cm. 3. Debris and small gallstones within the mid to distal common bile duct consistent with choledocholithiasis. 4. Moderate superimposed small bowel enteritis. 5. 1.3 cm indeterminate density left renal lesion. A multiphase CT follow-up at a later date is suggested." EKG: Per My Interpretation: Indication Epigastric Pain: Sinus Tach 108 bpm qtc 425 no ectopy nor stemi. Mild lateral ST depressions. Similar morphology to to Jan 04, 2019 with increased rate. Blood pressure: Elevated - Referred to Hospitalist Course: Multiple rechecks and patient feeling vastly improved, still TTP over RUQ Consults: Dr Correa Gen Surg agrees with plan to keep at this facility and to admit to hospitalist service as will need GI eval as well. [facility] Hospitalist (Dr Fallon) aware and will evaluate further. Disposition: Hospitalization Prescriptions: None. Differentials: Pancreatitis, acs, dissection, rupture, gb disease/obstructing stone, liver failure, electrolyte abnormality, gastritis/pud amongst other pat hologies. Medical Decision Making: Very uncomfortable 68 yr old female with acute epigastric pain rapidly worsening overnight associated with vomiting. Very tender over epigastrium and RUQ. No evidence acute ischemia on EKG. Pain controlled with morphine and given severe anxiety with this ativan as well. This worked well. Given severity of pain felt that CT imaging indicated which revealed very distended gallbladder with stones and hepatic duct dilation. Reviewed with Gen Surg who agree with hospitalist admit, GI eval, likely mrcp/ercp and they will follow along. Mefoxin given. Pain controlled. Patient reviewed with hospitalist. Family patient agree with plan. Impression: Choledocholithiasis Hyperbilirubinemia Gallstone of bile duct with Obstruction Yoshi Guillen MD Impression & Plan Choledocholithiasis, Hyperbilirubinemia, Gallstone of bile duct with obstruction Past Med/Surg History Medical History Choledocholithiasis No significant past medical history Surgical History Hip fracture History of bunionectomy History of tonsillectomy Social History Preferred Language: Greek Communication Ability: Effective Photographic Colorist Required: No Beliefs That Will Affect Care: None Current Living Situation: Alone current occupational status: employed Other Information That Helps Us Care for You: No Feels Safe at Home: Yes Safety Concerns: Feels Safe At This Time Smoking Status: Former smoker Do You Dip or Chew Tobacco: No ; Second Hand Exposure: No ; Tobacco Cessation Education Requested by Patient: No Hx Alcohol Use: Yes Hx Substance Use: No Results & Data Vital Signs Vital Signs - 24 hr 06/24/19 05:32 06/24/19 06:00 06/24/19 06:52 Temperature 36.2 C L Temperature Source Oral Sepsis Recent Fever Within 48 Hours No Sepsis New/Unexplained Change in Mental Status No Sepsis Action Taken by Nursing No Action Required Oxygen Flow Rate - Titration Pulse Oximetry Post Tiitration Pulse Rate 113 H Pulse Rate [Right Finger] 89 83 Pulse Rhythm [Right Finger] Regular Pulse Strength [Right Finger] Normal Respiratory Rate 26 H 28 H 16 Respiratory Effort / Characteristics Non-Labored Non-Labored Respiratory Depth Normal Normal Respiratory Pattern Regular Regular Blood Pressure 162/93 H Blood Pressure [Right Arm] 155/89 H 150/91 H Blood Pressure Mean 116 Blood Pressure Mean [Right Arm] 111 110 Blood Pressure Position [Right Arm] Lying Pulse Oximetry 97 98 99 Oxygen Delivery Method Room Air Room Air Nasal Cannula Oxygen Flow Rate 2 06/24/19 06:53 06/24/19 07:03 Temperature Temperature Source Sepsis Recent Fever Within 48 Hours Sepsis New/Unexplained Change in Mental Status Sepsis Action Taken by Nursing Oxygen Flow Rate - Titration 2 Pulse Oximetry Post Tiitration 99 Pulse Rate Pulse Rate [Right Finger] Pulse Rhythm [Right Finger] Pulse Strength [Right Finger] Respiratory Rate Respiratory Effort / Characteristics Non-Labored Spontaneous Respiratory Depth Normal Respiratory Pattern Regular Blood Pressure Blood Pressure [Right Arm] Blood Pressure Mean Blood Pressure Mean [Right Arm] Blood Pressure Position [Right Arm] Pulse Oximetry 88 L Oxygen Delivery Method Room Air Nasal Cannula Oxygen Flow Rate 0 2 Laboratory Data Result diagrams: 06/24/19 05:40 06/24/19 05:40 Lab Results 06/24/19 06/24/19 06/24/19 Range/Units 05:40 05:40 05:40 WBC 10.85 H (4.8-10.8) K/uL RBC 4.54 (4.2-5.4) M/uL Hgb 14.8 (12.0-16.0) g/dL POC Hgb (12.0-16.0) g/dl Hct 42.5 (37-47) % POC Hct (37-47) % MCV 93.6 (80-100) fL MCH 32.6 (25-34) pg MCHC 34.8 (32-36) g/dL RDW Std Deviation 48.2 H (36.4-46.3) fL RDW Coeff of Chong 14.1 (11.5-14.5) % Plt Count 230 (130-400) K/uL MPV 11.3 H (7.4-10.4) fL Immature Gran % (Auto) 0.2 % Neut % (Auto) 61.5 % Lymph % (Auto) 28.6 % Knox % (Auto) 8.8 % Eos % (Auto) 0.6 % Baso % (Auto) 0.3 % Immature Gran # (Auto) 0.02 (0.00-0.02) K/uL Neut # (Auto) 6.69 H (1.4-6.5) K/uL Lymph # (Auto) 3.10 (1.2-3.4) K/uL Knox # (Auto) 0.95 H (0.11-0.59) K/uL Eos # (Auto) 0.06 (0-0.5) K/uL Baso # (Auto) 0.03 (0-0.2) K/uL PT 9.9 (9.0-12.0) Seconds INR 1.0 (0.9-1.1) POC Sodium (135-144) mEq/L Sodium 137 (136-145) mmol/L POC Potassium (3.3-5.0) mEq/L Potassium 3.2 L (3.5-5.1) mmol/L POC Chloride (101-112) mEq/L Chloride 103 (98-107) mmol/L Carbon Dioxide 24 (21-32) mmol/L POC Total CO2 (24-31) mEq/l Anion Gap 10.0 (3-11) POC Anion Gap (16-25) mmol/L POC BUN (7-18) mg/dl BUN 17 (7-18) mg/dl Creatinine 0.83 (0.6-1.2) mg/dl POC Creatinine (0.6-1.3) mg/dl Est Cr Clr Drug Dosing 69.8 ml/min Est GFR ( Amer) 84.0 Est GFR (Non-Af Amer) 72.5 BUN/Creatinine Ratio 20.4 H (10-20) Glucose 154 H (70-99) mg/dl POC Glucose (other) (70-99) mg/dl Calcium 9.3 (8.5-10.1) mg/dl POC Ioniz Calcium Sydni (1.12-1.32) mmol/l Magnesium (1.8-2.4) mg/dl Total Bilirubin 3.6 H (0.2-1) mg/dl Direct Bilirubin 2.1 H (0-0.2) mg/dl AST 142 H (15-37) U/L ALT 210 H (12-78) U/L Alkaline Phosphatase 256 H (45-117) U/L Troponin I < 0.015 (0-0.045) ng/ml Total Protein 8.0 (6.4-8.2) gm/dl Albumin 3.7 (3.4-5.0) gm/dl Lipase 460 H (73-393) U/L 06/24/19 06/24/19 Range/Units 05:40 05:55 WBC (4.8-10.8) K/uL RBC (4.2-5.4) M/uL Hgb (12.0-16.0) g/dL POC Hgb 15.0 (12.0-16.0) g/dl Hct (37-47) % POC Hct 44 (37-47) % MCV (80-100) fL MCH (25-34) pg MCHC (32-36) g/dL RDW Std Deviation (36.4-46.3) fL RDW Coeff of Chong (11.5-14.5) % Plt Count (130-400) K/uL MPV (7.4-10.4) fL Immature Gran % (Auto) % Neut % (Auto) % Lymph % (Auto) % Knox % (Auto) % Eos % (Auto) % Baso % (Auto) % Immature Gran # (Auto) (0.00-0.02) K/uL Neut # (Auto) (1.4-6.5) K/uL Lymph # (Auto) (1.2-3.4) K/uL Knox # (Auto) (0.11-0.59) K/uL Eos # (Auto) (0-0.5) K/uL Baso # (Auto) (0-0.2) K/uL PT (9.0-12.0) Seconds INR (0.9-1.1) POC Sodium 138 (135-144) mEq/L Sodium (136-145) mmol/L POC Potassium 3.2 L (3.3-5.0) mEq/L Potassium (3.5-5.1) mmol/L POC Chloride 103 (101-112) mEq/L Chloride (98-107) mmol/L Carbon Dioxide (21-32) mmol/L POC Total CO2 20 L (24-31) mEq/l Anion Gap (3-11) POC Anion Gap 18.0 (16-25) mmol/L POC BUN 15 (7-18) mg/dl BUN (7-18) mg/dl Creatinine (0.6-1.2) mg/dl POC Creatinine 0.6 (0.6-1.3) mg/dl Est Cr Clr Drug Dosing ml/min Est GFR ( Amer) Est GFR (Non-Af Amer) BUN/Creatinine Ratio (10-20) Glucose (70-99) mg/dl POC Glucose (other) 161 H (70-99) mg/dl Calcium (8.5-10.1) mg/dl POC Ioniz Calcium Sydni 1.12 (1.12-1.32) mmol/l Magnesium 1.8 (1.8-2.4) mg/dl Total Bilirubin (0.2-1) mg/dl Direct Bilirubin (0-0.2) mg/dl AST (15-37) U/L ALT (12-78) U/L Alkaline Phosphatase (45-117) U/L Troponin I (0-0.045) ng/ml Total Protein (6.4-8.2) gm/dl Albumin (3.4-5.0) gm/dl Lipase (73-393) U/L Administered Medications Piperacillin Sod/Tazobactam (Sod 4.5 gm/ Dextrose) 120 mls @ 30 mls/hr IV Q8H REPLACED BY [facility]; Protocol Stop: 07/04/19 11:59 Last Admin: 06/24/19 20:19 Dose: 30 mls/hr Documented by: [id number] Infusion: 06/24/19 18:03 Dose: 0 mls/hr Documented by: [id number] Admin: 06/24/19 14:05 Dose: 30 mls/hr Documented by: [id number] Dextrose/Sodium Chloride (D5w And 1/2nss) 1,000 mls @ 80 mls/hr IV .[id number] REPLACED BY [facility] Stop: 07/24/19 07:59 Last Infusion: 06/24/19 17:35 Dose: 80 mls/hr Documented by: [id number] Infusion: 06/24/19 10:17 Dose: 0 mls/hr Documented by: [id number] Admin: 06/24/19 09:57 Dose: 80 mls/hr Documented by: [id number] Metoclopramide HCl (Reglan) 10 mg IV Q6H PRN PRN Reason: Nausea Stop: 07/24/19 07:53 Last Admin: 06/24/19 09:09 Dose: 10 mg Documented by: [id number] Discontinued Medications Bupivacaine HCl (Marcaine 0.5% Mpf) Confirm Administered Dose 30 ml .ROUTE .STK- MED ONE Stop: 06/24/19 13:38 Last Admin: 06/24/19 15:19 Dose: 30 ml Documented by: [id number] Hydromorphone HCl (Dilaudid) 0.5 mg IV Q6H PRN PRN Reason: moderate to severe pain Stop: 07/08/19 07:53 Last Admin: 06/24/19 09:05 Dose: 0.5 mg Documented by: [id number] Lorazepam (Ativan) 1 mg in 2 mls @ 2 mls/min IV NOW STA Stop: 06/24/19 05:49 Last Admin: 06/24/19 05:56 Dose: 2 mls/min Documented by: [id number] Sodium Chloride (Nss 1000ml) 1,000 mls @ 999 mls/hr IV .Q1H1M ONE Stop: 06/24/19 06:48 Last Infusion: 06/24/19 07:06 Dose: 0 mls/hr Documented by: [id number] Admin: 06/24/19 05:55 Dose: 999 mls/hr Documented by: [id number] Cefoxitin Sodium (Mefoxin) 2,000 mg in 60 mls @ 100 mls/hr IV NOW STA Stop: 06/24/19 07:08 Last Infusion: 06/24/19 08:07 Dose: 0 mls/hr Documented by: [id number] Infusion: 06/24/19 07:43 Dose: 100 mls/hr Documented by: [id number] Infusion: 06/24/19 06:55 Dose: 0 mls/hr Documented by: [id number] Admin: 06/24/19 06:51 Dose: 100 mls/hr Documented by: [id number] Piperacillin Sod/Tazobactam Sod (Zosyn) 4.5 gm in 120 mls @ 240 mls/hr IV ONE ONE; Protocol Stop: 06/24/19 07:44 Last Infusion: 06/24/19 09:39 Dose: 0 mls/hr Documented by: [id number] Admin: 06/24/19 08:07 Dose: 240 mls/hr Documented by: [id number] Potassium Chloride (K Samir / Wtr) 10 meq in 100 mls @ 100 mls/hr IV Q1H LUIS M Stop: 06/24/19 10:59 Last Infusion: 06/24/19 13:03 Dose: 0 mls/hr Documented by: [id number] Admin: 06/24/19 11:31 Dose: 100 mls/hr Documented by: [id number] Infusion: 06/24/19 11:31 Dose: 100 mls/hr Documented by: [id number] Infusion: 06/24/19 11:30 Dose: 100 mls/hr Documented by: [id number] Infusion: 06/24/19 10:17 Dose: 0 mls/hr Documented by: [id number] Admin: 06/24/19 09:54 Dose: 100 mls/hr Documented by: [id number] Promethazine HCl 12.5 mg/ (Sodium Chloride) 50.5 mls @ 202 mls/hr IV NOW STA Stop: 06/24/19 16:29 Last Infusion: 06/24/19 16:35 Dose: 0 mls/hr Documented by: [id number] Admin: 06/24/19 16:20 Dose: 202 mls/hr Documented by: [id number] Indomethacin (Indocin) 100 mg NJ ONE ONE Stop: 06/24/19 08:41 Last Admin: 06/24/19 13:08 Dose: Not Given Documented by: [id number] Indomethacin (Indocin) Confirm Administered Dose 100 mg NJ .STK-MED ONE Stop: 06/24/19 13:12 Last Admin: 06/24/19 14:25 Dose: 100 mg Documented by: [id number] Ioversol (Optiray 320 100ml) 100 ml IV ONCE PRN PRN Reason: Interaction Checking Stop: 06/28/19 06:21 Last Admin: 06/24/19 06:22 Dose: 93 ml Documented by: [id number] Morphine Sulfate (Morphine Sulfate) 4 mg IV NOW STA Stop: 06/24/19 05:49 Last Admin: 06/24/19 05:55 Dose: 4 mg Documented by: [id number] Morphine Sulfate (Morphine Sulfate) 4 mg IV NOW STA Stop: 06/24/19 06:34 Last Admin: 06/24/19 06:51 Dose: 4 mg Documented by: [id number] Ondansetron HCl (Zofran) 4 mg IV NOW STA Stop: 06/24/19 06:00 Last Admin: 06/24/19 06:03 Dose: 4 mg Documented by: [id number] Ondansetron HCl (Zofran) 4 mg IV ONCE PRN PRN Reason: PACU Use Only-Nausea/Vomiting Stop: 06/24/19 18:11 Last Admin: 06/24/19 16:33 Dose: 4 mg Documented by: [id number] Discharge Plan Visit Data *Final* Discharge Date/Time: 06/24/19 08:19 Chief Complaint: Chest Pain Stated Complaint: TROUBLE BREATHING ED Provider: Yoshi Guillen Discharge Problem: Choledocholithiasis, Hyperbilirubinemia, Gallstone of bile duct with obstruction Patient Disposition: Admitted As Inpatient Discharge Instructions Interventions: ED Discharge Assessment Last Done: 06/24/19 08:19 Discharge Problem: Gallstone of bile duct with obstruction Qualifiers: Cholecystitis presence: without cholecystitis Qualified Code(s): K80.51 - Calculus of bile duct without cholangitis or cholecystitis with obstruction
[2019-06-24] MEDS ORDERED: ONDANSETRON INJ 2 MG/ML 2 ML VIAL IV STA (05:59)
[2019-06-24 06:08] LABS: iSTAT Creatinine 0.6 mg/dl (0.6-1.3); iSTAT Ionized Calcium 1.12 mmol/l (1.12-1.32); iSTAT Potassium 3.2 mEq/L (3.3-5.0)
[2019-06-24 06:10] LABS: Basophils # (auto) 0.03 K/uL (0-0.2); Basophils % (auto) 0.3 %; Eosinophils # (auto) 0.06 K/uL (0-0.5); Eosinophils % (auto) 0.6 %; Hematocrit (blood only) 42.5 % (37-47); Hemoglobin 14.8 g/dL (12.0-16.0); Immature Granulocytes # (auto) 0.02 K/uL (0.00-0.02); Immature Granulocytes % (auto) 0.2 %; Lymphocytes % (auto) 28.6 %; Mean Corpuscular Hemoglobin 32.6 pg (25-34); Mean Corpuscular Hgb Conc 34.8 g/dL (32-36); Mean Corpuscular Volume 93.6 fL (80-100); Mean Platelet Volume 11.3 fL (7.4-10.4); Monocytes # (auto) 0.95 K/uL (0.11-0.59); Monocytes % (auto) 8.8 %; Neutrophils # (auto) 6.69 K/uL (1.4-6.5); Neutrophils % (auto) 61.5 %; Platelet Count 230 K/uL (130-400); RDW Coefficient of Variation 14.1 % (11.5-14.5); RDW Standard Deviation 48.2 fL (36.4-46.3); Red Blood Count 4.54 M/uL (4.2-5.4); White Blood Count 10.85 K/uL (4.8-10.8)
[2019-06-24 06:19] LABS: Alanine Aminotransferase 210 U/L (12-78); Albumin Level 3.7 gm/dl (3.4-5.0); Aspartate Aminotransferase 142 U/L (15-37); BUN Creatinine Ratio 20.4 (10-20); Bilirubin Direct 2.1 mg/dl (0-0.2); Blood Urea Nitrogen 17 mg/dl (7-18); Calcium 9.3 mg/dl (8.5-10.1); Carbon Dioxide 24 mmol/L (21-32); Chloride 103 mmol/L (98-107); Creatinine Clr Calc Pharmacy 69.8 ml/min; Est GFR (Non-African American) 72.5; Glucose 154 mg/dl (70-99); Lipase 460 U/L (73-393); Potassium 3.2 mmol/L (3.5-5.1); Sodium 137 mmol/L (136-145)
[2019-06-24] MEDS ORDERED: IOVERSOL 100ml IV PRN (06:22)
[2019-06-24 06:24] LABS: Alkaline Phosphatase 256 U/L (45-117); Bilirubin,Total 3.6 mg/dl (0.2-1); Troponin I < 0.015 ng/ml (0-0.045)
[2019-06-24 06:25] LABS: Prothrombin Time 9.9 Seconds (9.0-12.0)
[2019-06-24] MEDS ORDERED: cefOXitin 2,000 MG/60 ML BAG IV STA (06:33)
--- NOTE | 2019-06-24 06:37 | XRay Report ---
XR chest 1V portable CLINICAL HISTORY: cp dyspnea COMPARISON STUDY: 01/04/2019 FINDINGS: Mild stable cardiac megaly. Unchanged basilar atelectasis. Mild increase in pulmonary vasculature. IMPRESSION: Pulmonary vascular congestion. Persistent mild bibasilar atelectasis. The above report was generated using voice recognition software. It may contain grammatical, syntax or spelling errors. Electronically signed by: Elia Pineda M.D. 06/24/2019 6:35 AM
[2019-06-24] MEDS ORDERED: PIPERACILL/TAZOBAC CONSULT ACTIVE PRN (06:48)
--- NOTE | 2019-06-24 06:51 | CT Scan Report ---
CT abd pelvis IV con only CT DOSE: 967.18 mGy.cm HISTORY: Pain. Nausea. epigastric pain TECHNIQUE: Multiaxial CT images of the abdomen and pelvis were performed following the use of intrave nous contrast. A dose lowering technique was utilized adhering to the principles of ALARA. COMPARISON STUDY: None. FINDINGS: Minimal bibasilar dependent atelectasis. This includes minimal lingular atelectasis. Biliary ductal distention. This involves the intrahepatic as well as common bile duct. Common bile du ct has a maximum diameter 2 cm. The gallbladder is distended. Adherent gallstones versus polyps are present throughout. There appears to be a combination of debris as well as small gallstones within the mid to distal comm on bile duct. Spleen is unremarkable. 1.3 cm indeterminate density left renal lesion. No evidence for renal hydrone phrosis. Nonobstructive bowel pattern. Probable diverticulum of the left abdomen involving small bowel loop in the left flank Slight hyperemia of several loops of small bowel in the left central abdomen suggesting component of superimposed enteritis. Prior right hip pain. Atrophy of the right hemipelvic musculature compared to the left. IMPRESSION: 1. Distended gallbladder containing a considerable number of gallbladder polyps, sludge, versus galls tones. 2. Distended biliary ductal system with a maximum extra hepatic common bile duct dimension of 2 cm. 3. Debris and small gallstones within the mid to distal common bile duct consistent with choledocholi thiasis. 4. Moderate superimposed small bowel enteritis. 5. 1.3 cm indeterminate density left renal lesion. A multiphase CT follow-up at a later date is ysabel logan. The above report was generated using voice recognition software. It may contain grammatical, syntax or spelling errors. Electronically signed by: Elia Pineda M.D. 06/24/2019 6:50 AM
[2019-06-24] MEDS ORDERED: PIPERACILLIN/TAZOBACTAM 4.5 GM/120 ML BAG IV ONE (07:15)
[2019-06-24] MEDS ORDERED: HYDROmorphone INJ 0.5 MG/0.5 ML SYR IV PRN ×2 (07:54→17:07)
[2019-06-24] MEDS ORDERED: POLYETHYLENE (MIRALAX) 17 GM PACK PO PRN (07:55)
[2019-06-24] MEDS ORDERED: ACETAMINOPHEN 65 ML IV PRN (08:00)
--- NOTE | 2019-06-24 08:02 | Hospitalist Progress Note ---
Date of Service June 24, 2019 Assessment & Plan (1) Choledocholithiasis: Transaminitis -there is the presence of cholelithiasis and biliary duct dilatation highly suspicious for choledocholithiasis (Distended gallbladder containing a considerable number of gallbladder polyps, sludge, versus gallstones. Distended biliary ductal system with a maximum extra hepatic common bile duct dimension of 2 cm. Debris and small gallstones within the mid to distal common bile duct consistent with choledocholithiasis. Moderate superimposed small bowel enteritis. 1.3 cm indeterminate density left renal lesion. A multiphase CT follow-up at a later date is suggested.) -also associated elevated liver function enzymes and akaline phosphatase that correlates with biliary obstruction -Emergency room physician contacted general surgery Dr. Correa and hospitalist also contacted general surgery Dr. Raman in regards to the gallbladder -general surgery service advise getting gastroenterology involved in exploring biliary duct -will order MRCP for now [facility]; if gastroenterology service does not feel that MRCP is needed then will defer to gastroenterology on other imaging modalities -IV antibiotics started empirically, would continue IV Zosyn for now, follow blood cultures -IV pain medications and prn IV antiemetics -keep NPO, start D5 1/2 normal IV fluids for hydration Hypokalemia -admission serum potassium 3.2 -give IV potassium 10 meq x 2 -check serum magnesium levels History of right hip -Operation Date: 01/05/19 07:30 Open Reduction Internal Fixation Right Hip with an intramedullary trochanteric fixation nail -have discussed with refrigeration service technician and it is unlikely that there would be compatibility issues for MRCP DVT prophylaxis: SCDs for now Full Code Daughter Meli [phone] Subjective The is a 68 year old female with past medical history of right hip fracture repair in December 2018 who has been having since Monday06/21/2019 abdominal discomfort and pain which has been coming and going. Patient reports that abdominal pain is towards midline down the belly. She denies vomiting or fever at home. She has been able to make bowel movements. She denies anterior chest pain or back pain. She denies recent problems with breathing. She does not take any medications at home besides vitamin Biotin and occasional acetaminophen. Allergies: reports allergies to Bactrim years ago that she associates with swelling of throat Family History: grandmother had hypertension Review of Systems Review of Systems: All systems reviewed & are unremarkable except as noted in HPI & below Physical Exam Constitutional: comfortable Eyes: PERRL, conjunctivae normal, anicteric sclerae EOM intact bilaterally ENMT: external ear and nose normal, oropharynx normal Neck: normal visual inspection Respiratory: normal respiratory effort, lungs clear to auscultation on nasal cannula Cardiovascular: RRR, no murmur, no edema Gastrointestinal (Abdomen): at time of my exam, patient had received pain medications recently and no acute tenderness elicited on palpation of abdomen. abdomen is soft and non distended. bowel sounds audible Neurologic: PERRL, EOMI, accommodation nl, no face palsy, no dysarthria C N's II-XI intact bilaterally Psychiatric: A+Ox3, euthymic affect Results & Data Vital Signs (Past 12 Hours) Vital Signs Temp Pulse Pulse Resp BP BP Pulse Ox 06/24/19 06:53 88 L 06/24/19 06:52 83 16 150/91 H 99 06/24/19 06:00 89 28 H 155/89 H 98 06/24/19 05:32 36.2 C L 113 H 26 H 162/93 H 97
--- NOTE | 2019-06-24 08:23 | History & Physical Report ---
Date of Service June 24, 2019 Assessment & Plan (1) Choledocholithiasis: Transaminitis -there is the presence of cholelithiasis and biliary duct dilatation highly suspicious for choledocholithiasis (Distended gallbladder containing a considerable number of gallbladder polyps, sludge, versus gallstones. Distended biliary ductal system with a maximum extra hepatic common bile duct dimension of 2 cm. Debris and small gallstones within the mid to distal common bile duct consistent with choledocholithiasis. Moderate superimposed small bowel enteritis. 1.3 cm indeterminate density left renal lesion. A multiphase CT follow-up at a later date is suggested.) -also associated elevated liver function enzymes and akaline phosphatase that correlates with biliary obstruction -Emergency room physician contacted general surgery Dr. Correa and hospitalist also contacted general surgery Dr. Raman in regards to the gallbladder -general surgery service advise getting gastroenterology involved in exploring biliary duct -will order [facility] for now [facility]; if gastroenterology service does not feel that MRCP is needed then will defer to gastroenterology on other imaging modalities -IV antibiotics started empirically, would continue IV Zosyn for now, follow blood cultures -IV pain medications and prn IV antiemetics -keep NPO, start D5 1/2 normal IV fluids for hydration Hypokalemia -admission serum potassium 3.2 -give IV potassium 10 meq x 2 -check serum magnesium levels History of right hip -Operation Date: 01/05/19 07:30 Open Reduction Internal Fixation Right Hip with an intramedullary trochanteric fixation nail -have discussed with airframe and powerplant technician and it is unlikely that there would be compatibility issues for MRCP DVT prophylaxis: SCDs for now Full Code Daughter Meli [phone] History of Present Illness The is a 68 year old female with past medical history of right hip fracture repair in December 2018 who has been having since Monday06/21/2019 abdominal discomfort and pain which has been coming and going. Patient reports that abdominal pain is towards midline down the belly. She denies vomiting or fever at home. She has been able to make bowel movements. She denies anterior chest pa in or back pain. She denies recent problems with breathing. She does not take any medications at home besides vitamin Biotin and occasional acetaminophen. Allergies: reports allergies to Bactrim years ago that she associates with swelling of throat Family History: grandmother had hypertension Primary Care Provider: Soraida John DO Allergies Allergy/AdvReac Type Severity Reaction Status Date / Time sulfamethoxazole Allergy Severe SWELLING Verified 06/24/19 05:57 [From Bactrim] OF THROAT, RASH trimethoprim [From Bactrim] Allergy Severe SWELLING Verified 06/24/19 05:57 OF THROAT, RASH MOST PAIN MEDS AdvReac Intermediate Vomiting Uncoded 06/24/19 05:57 Home Medications Home Medications Medication Instructions Recorded Confirmed Type acetaminophen [Tylenol Extra 1,000 mg PO QID PRN 01/04/19 06/24/19 History Strength] biotin 0 mg PO DAILY 01/04/19 06/24/19 History Past Med/Surg History Social History Preferred Language: Estonian Communication Ability: Effective Newsstand Vendor Required: No Beliefs That Will Affect Care: None Current Living Situation: Alone current occupational status: employed Other Information That Helps Us Care for You: No Feels Safe at Home: Yes Safety Concerns: Feels Safe At This Time Smoking Status: Former smoker Do You Dip or Chew Tobacco: No ; Second Hand Exposure: No ; Tobacco Cessation Education Requested by Patient: No Hx Alcohol Use: Yes Hx Substance Use: No Review of Systems Review of Systems: All systems reviewed & are unremarkable except as noted in HPI & below Physical Exam Constitutional: comfortable Eyes: PERRL, conjunctivae normal, anicteric sclerae EOM intact bilaterally ENMT: external ear and nose normal, oropharynx normal Neck: normal visual inspection Respiratory: normal respiratory effort, lungs clear to auscultation Cardiovascular: RRR, no murmur, no edema Chest (Breasts): Chest: normal inspection of chest Gastrointestinal (Abdomen): at time of my exam, patient had received pain medications recently and no acute tenderness elicited on palpation of abdomen. abdomen is soft and non distended. bowel sounds audible Musculoskeletal: Head/Neck/Chest: normocephalic and head atraumatic Skin: no rashes, warm and dry Neurologic: PERRL, EOMI, accommodation nl, no face palsy, no dysarthria CN's II-XI intact bilaterally Psychiatric: A+Ox3, euthymic affect Results & Data Vital Signs (Past 12 Hours) Vital Signs Temp Pulse Pulse Resp BP BP Pulse Ox 06/24/19 08:14 83 17 148/86 H 97 06/24/19 06:53 88 L 06/24/19 06:52 83 16 150/91 H 99 06/24/19 06:00 89 28 H 155/89 H 98 06/24/19 05:32 36.2 C L 113 H 26 H 162/93 H 97 Code Status & VTE Plan VTE Prophylaxis Plan VTE Prophylaxis will be ordered: Yes
[2019-06-24] MEDS ORDERED: INDOMETHACIN 50 MG SUPP PR ONE ×2 (08:40→13:11)
[2019-06-24] MEDS: METOCLOPRAMIDE HCL INJ 5 MG/ML 2 ML VIAL IV PRN (09:09)
--- NOTE | 2019-06-24 09:24 | Gastrointestinal Consultation ---
Date of Consultation June 24, 2019 Assessment & Plan (1) Choledocholithiasis: Pt is a 68 y/o female presented w jaundice, abd pain, labs notable for elevated LFTs, Lipase and CT evidence of distended gallbladder w stones, sludge, dilated CBD 2cm and choledocholithiasis. ? enteritis though she denies loose stools - MRCP cancelled - Keep NPO - Continue IVF, IV antibx - ERCP in OR by Dr. Wynn this AM. Send Indomethacin 100mg WV x 1 dose to OR to be given per ERCP - Surgery consulted - GI will give further recs after ERCP completed Supervising Physician Co-Signing Physician Notes I performed a history and physical examination of the patient, including specifically on physical exam - soft, nontender abdomen. I have discussed the patient's management with Samantha. Please refer to the nurse practitioner's note for the documented findings and plan of care. 68 female patient presented with abdominal pain, found with elevated liver enzymes and dilated CBD with stones. Plan for ERCP today followed by Jann العراقي. History of Present Illness Reason for Consultation: Distended gallbladder, biliary sludge Requesting Physician: Dr. Bassam Raines Attending Physician: Dr. Darcy Wynn History of Present Illness Pt is a 68 y/o female who presented to ED last night for c/o epigastric area abd pain since last night. Ate tomato sandwich for dinner and [employer] breakfast burrito. She denies any associated fever, CP, SOB, n/v. On exam, she appears to be jaundice, and labs showed mild leukocytosis WBC 10.8, elevated LFTs and Lipase: Tbili 3.6,AST 142, ALT 250, AP 250, Lipase 460. CT abd/pelvis showed signs of "distended gallbladder containing a considerable number of gallbladder polyps, sludge, versus gallstones. Distended biliary ductal system with a maximum extra hepatic common bile duct dimension of 2 cm. Debris and small gallstones within the mid to distal common bile duct consistent with choledocholithiasis. Moderate superimposed small bowel enteritis." Allergies Allergy/AdvReac Type Severity Reaction Status Date / Time sulfamethoxazole Allergy Severe SWELLING Verified 06/24/19 05:57 [From Bactrim] OF THROAT, RASH trimethoprim [From Bactrim] Allergy Severe SWELLING Verified 06/24/19 05:57 OF THROAT, RASH MOST PAIN MEDS AdvReac Intermediate Vomiting Uncoded 06/24/19 05:57 Home Medications Home Medications Medication Instructions Recorded Confirmed Type acetaminophen [Tylenol Extra 1,000 mg PO QID PRN 01/04/19 06/24/19 History Strength] biotin 0 mg PO DAILY 01/04/19 06/24/19 History Patient History Medical History Choledocholithiasis No significant past medical history Surgical History Hip fracture Social History Preferred Language: [place] Communication Ability: Effective Chromosomal Disorders Counselor Required: No Beliefs That Will Affect Care: None Current Living Situation: Alone current occupational status: employed Other Information That Helps Us Care for You: No Feels Safe at Home: Yes Safety Concerns: Feels Safe At This Time Smoking Status: Former smoker Do You Dip or Chew Tobacco: No ; Second Hand Exposure: No ; Tobacco Cessation Education Requested by Patient: No Hx Alcohol Use: Yes Hx Substance Use: No Review of Systems Review of Systems: All systems reviewed & are unremarkable except as noted in HPI & below Physical Exam Constitutional: WD/WN, vitals as above well groomed, cooperative and comfortable Eyes: + scleral abnormality (icteric sclera) ENMT: external ear and nose normal, oropharynx normal Respiratory: normal respiratory effort, lungs clear to auscultation Cardiovascular: RRR, no murmur, no edema Gastrointestinal (Abdomen): Inspection/Auscultation: + hypoactive bowel sounds Percussion/Palpation: + abdomen tender (epigastric ) and abdomen soft Skin: no rashes, warm and dry no jaundice Neurologic: Motor/Sensory: no asterixis Psychiatric: A+Ox3, euthymic affect Lymphatic: no lymphedema Results & Data Vital Signs (Past 12 Hours) Vital Signs Temp Pulse Pulse Resp BP BP Pulse Ox 06/24/19 09:03 36.5 C 81 16 134/80 97 06/24/19 08:14 83 17 148/86 H 97 06/24/19 06:53 88 L 06/24/19 06:52 83 16 150/91 H 99 06/24/19 06:00 89 28 H 155/89 H 98 06/24/19 05:32 36.2 C L 113 H 26 H 162/93 H 97
--- NOTE | 2019-06-24 09:35 | Anesthesiology Consultation ---
Date of Service June 24, 2019 Assessment & Plan (1) Encounter for pre-operative examination: Chart Review Chart Review: Acceptable Risk for Surgery and Patient NOT seen in Pre Admission Testing Consults Requested none ASA ASA3 Proposed Anesthesia Anesthesia Type: General Risk / Benefits Reviewed With: PT / POA / Parent / Guardian, Accepts Plan and Informed Consent Obtained History Surgery Operation Date: 06/24/19 10:50 Proposed Procedures p Endoscopic Retrograde Cholangiopancreatogram - Darcy Wynn MD s Laparoscopic Cholecystectomy - Kd Raman DO, FACS Height/Weight Height: 5 ft 3 in Weight: 96.6 kg Allergies Allergy/AdvReac Type Severity Reaction Status Date / Time sulfamethoxazole Allergy Severe SWELLING Verified 06/24/19 05:57 [From Bactrim] OF THROAT, RASH trimethoprim [From Bactrim] Allergy Severe SWELLING Verified 06/24/19 05:57 OF THROAT, RASH MOST PAIN MEDS AdvReac Intermediate Vomiting Uncoded 06/24/19 05:57 Medications Home Medications Medication Instructions Recorded Confirmed Last Taken acetaminophen [Tylenol Extra 1,000 mg PO QID PRN 01/04/19 06/24/19 Unknown Strength] biotin 0 mg PO DAILY 01/04/19 06/24/19 06/23/19 Active Medications Generic Name Dose Route Start Last Admin Trade Name Freq PRN Reason Stop Dose Admin Hydromorphone HCl 0.5 mg 06/24/19 07:54 06/24/19 09:05 Dilaudid IV 07/08/19 07:53 0.5 mg Q6H PRN Administration moderate to severe pain Dextrose/Sodium Chloride 1,000 mls @ 80 mls/hr 06/24/19 08:00 06/24/19 10:17 D5w And 1/2nss IV 07/24/19 07:59 0 mls/hr .[id number] LUIS M Infusion Ioversol 100 ml 06/24/19 06:22 06/24/19 06:22 Optiray 320 100ml IV 06/28/19 06:21 93 ml ONCE PRN Administration Interaction Checking Metoclopramide HCl 10 mg 06/24/19 07:54 06/24/19 09:09 Reglan IV 07/24/19 07:53 10 mg Q6H PRN Administration Nausea NPO Date Last Intake of Fluids: 06/24/19 Time Last Intake of Fluids: 05:00 Date Last Intake of Solids: 06/23/19 Time Last Intake of Solids: 22:00 Past Medical History Medical History Choledocholithiasis No significant past medical history Exercise / Class Metabolic Activity II 4-5 Yardwork/Stairs/Walk up hill Negative for chest pain or shortness of breath. Past Surgical History Surgical History Hip fracture History of bunionectomy History of tonsillectomy Past Anesthesia History No Hx of Anesthesia Complications History of PONV No Hx of PONV and Hx of Motion Sickness (Occassional ) Social History Smoking Status: Former smoker Do You Dip or Chew Tobacco: No Hx Alcohol Use: Yes alcohol intake frequency: holidays/special occasions only Hx Substance Use: No substance use type: does not use Review of Systems Patient denies active symptoms of GERD. Positive for nausea Negative for chest pain or shortness of breath. Physical Exam Vital Signs Last Vital Signs Temp 36.6 C 06/24/19 12:17 Pulse 82 06/24/19 12:17 Resp 16 06/24/19 12:17 BP 154/83 H 06/24/19 12:17 Pulse Ox 97 06/24/19 12:17 Constitutional + obese ENMT Mouth: no TMJ abnormality and oral opening not small Thyromental Distance: < 3.5 Finger Breadths Mallampati Class: II Mouth / Teeth: 1. Chipped and broken Neck normal visual inspection; neck extension not limited Respiratory normal respiratory effort Auscultation: lungs clear to auscultation bilaterally Cardiovascular Rate/Rhythm: regular rate and regular rhythm Heart Sounds: no murmur Neurologic moves all extremities Psychiatric Orientation: alert and oriented x 3 Testing Laboratory Results 06/24/19 05:40 06/24/19 05:40 PT 9.9 Seconds (9.0-12.0) 06/24/19 05:40 INR 1.0 (0.9-1.1) 06/24/19 05:40 06/24/19 05:55 POC Glucose (other) 161 H Electrocardiogram Date: 06/24/[address] and T wave abnormality Abnormal ECG When compared with ECG of 04-JAN-2019 14:13, Nonspecific T wave abnormality, worse in Inferior leads Chest X-Ray Date: 06/24/19 IMPRESSION: Pulmonary vascular congestion. Persistent mild bibasilar atelectasis.
[2019-06-24] MEDS: POTASSIUM CHLORIDE / WTR 10 MEQ/100 ML PLCT IV SCH ×2 (09:54→11:31)
[2019-06-24] MEDS: D5W AND 1/2NSS 1,000 ML IV SCH (09:57)
--- NOTE | 2019-06-24 10:17 | Surgery Consultation ---
Date of Consultation June 24, 2019 Assessment & Plan (1) Choledocholithiasis: This is a 68y F who presents to the [facility] ED this AM with complaints of abdominal pain. On CT scan she was found to have a distended gallbladder, distended biliary ductal system with CBD 2cm, and choledocholithiasis with an elevated Tbili, transaminases, and lipase. GI was consulted and are planning to perform an ERCP today. Continue NPO with IVF and IV abx. We can try to coordinate a joint procedure and perform laparoscopic cholecystectomy after GI performs ERCP if able. Dr Correa- as above- plan for Dr Raman to proceed with laparoscopic cholecystectomy after ERCP Supervising Physician Co-Signing Physician Notes patient seen and examined, labs and imaging reviewed, agree with above. 68 y/o female with choledocholithiasis, plan for laparoscopic cholecystectomy after ERCP today. laparoscopic cholecystectomy with possible cholangiogram today risks discussed to include bleeding, infection, open surgery, damage to surrounding structures, retained stone, bile leak, need for future or more extensive surgery, and risks of anesthesia History of Present Illness Attending Physician: Bassam Raines MD History of Present Illness This is a 68y F who presented to the [facility] ED on the AM of 06/24/19 with epigastric abdominal pain radiating to her back. The patient states that this abdominal pain started on Monday but was transient and went away. Yesterday the pain returned and she described it as feeling like indigestion. She tried to drink some soda and took Tums without any relief. The pain progressed to what she said was 9/10 in severity and she could not get comfortable, therefore she presented to the ED for further evaluation. The patient last ate yesterday and denies any associated nausea/vomiting/bloating/fevers/chills/or chest pain. Her last BM was yesterday. She states her bowel habits have not been normal since her hip was replaced 6 months ago with alternating diarrhea and constipation. She denies any history of abdominal surgeries. Workup in the ED revealed an elevated Tbili of 3.6, Lipase: 460, AST: 142, ALT: 210, AlkP: 256, and WBC: 10.8. Patient's VSS and is afebrile. CT of the abdomen/pelvis revealed a distended gallbladder with polyps, sludge, vs gallstones, a distended biliary ductal system with CBD of 2cm, debris and small gallstones within the mid to distal common bile duct with choledocholithiasis, and moderate enteritis. Allergies Allergy/AdvReac Type Severity Reaction Status Date / Time sulfamethoxazole Allergy Severe SWELLING Verified 06/24/19 05:57 [From Bactrim] OF THROAT, RASH trimethoprim [From Bactrim] Allergy Severe SWELLING Verified 06/24/19 05:57 OF THROAT, RASH MOST PAIN MEDS AdvReac Intermediate Vomiting Uncoded 06/24/19 05:57 Home Medications Home Medications Medication Instructions Recorded Confirmed Type acetaminophen [Tylenol Extra 1,000 mg PO QID PRN 01/04/19 06/24/19 History Strength] biotin 0 mg PO DAILY 01/04/19 06/24/19 History Patient History Medical History Choledocholithiasis No significant past medical history Surgical History Hip fracture Social History Preferred Language: Portuguese Communication Ability: Effective Lining Vamper Required: No Beliefs That Will Affect Care: None Current Living Situation: Alone current occupational status: employed Other Information That Helps Us Care for You: No Feels Safe at Home: Yes Safety Concerns: Feels Safe At This Time Smoking Status: Former smoker Do You Dip or Chew Tobacco: No ; Second Hand Exposure: No ; Tobacco Cessation Education Requested by Patient: No Hx Alcohol Use: Yes Hx Substance Use: No Review of Systems Constitutional: no fever and no chills Respiratory: no shortness of breath Cardiovascular: no chest pain Gastrointestinal: + abdominal pain (mostly epigastric); no nausea and no vomiting Genitourinary: no dysuria and no urinary frequency Physical Exam Physical Exam: sleepy, but easily arousable and communicative Constitutional: well developed and well nourished; no acute distress Respiratory: normal respiratory effort; no respiratory distress Cardiovascular: Rate/Rhythm: regular rate Gastrointestinal (Abdomen): Inspection/Auscultation: + abdomen distended (mildly) Percussion/Palpation: + abdomen tender (to deep palpation in RUQ) and abdomen soft Results & Data Vital Signs (Past 12 Hours) Vital Signs Temp Pulse Pulse Resp BP BP Pulse Ox 06/24/19 09:03 36.5 C 81 16 134/80 97 06/24/19 08:14 83 17 148/86 H 97 06/24/19 06:53 88 L 06/24/19 06:52 83 16 150/91 H 99 06/24/19 06:00 89 28 H 155/89 H 98 06/24/19 05:32 36.2 C L 113 H 26 H 162/[address] abd pelvis IV con only CT DOSE: 967.18 mGy.cm HISTORY: Pain. Nausea. epigastric pain TECHNIQUE: Multiaxial CT images of the abdomen and pelvis were performed following the use of intravenous contrast. A dose lowering technique was utilized adhering to the principles of ALARA. COMPARISON STUDY: None. FINDINGS: Minimal bibasilar dependent atelectasis. This includes minimal lingular atelectasis. Biliary ductal distention. This involves the intrahepatic as well as common bile duct. Common bile duct has a maximum diameter 2 cm. The gallbladder is distended. Adherent gallstones versus polyps are present thr oughout. There appears to be a combination of debris as well as small gallstones within the mid to distal common bile duct. Spleen is unremarkable. 1.3 cm indeterminate density left renal lesion. No evidence for renal hydronephrosis. Nonobstructive bowel pattern. Probable diverticulum of the left abdomen involving small bowel loop in the left flank Slight hyperemia of several loops of small bowel in the left central abdomen suggesting component of superimposed enteritis. Prior right hip pain. Atrophy of the right hemipelvic musculature compared to the left. IMPRESSION: 1. Distended gallbladder containing a considerable number of gallbladder polyps, sludge, versus gallstones. 2. Distended biliary ductal system with a maximum extra hepatic common bile duct dimension of 2 cm. 3. Debris and small gallstones within the mid to distal common bile duct consistent with choledocholithiasis. 4. Moderate superimposed small bowel enteritis. 5. 1.3 cm indeterminate density left renal lesion. A multiphase CT follow-up at a later date is suggested. The above report was generated using voice recognition software. It may contain grammatical, syntax or spelling errors. Electronically signed by: Elia Pineda M.D. 06/24/2019 6:50 AM PG Care Time/CCT Total # of Minutes Spent Total Time Spent with Patient: Total time spent is greater than 50% in coordination of care (as documented) at patient's floor/unit and/or counseling patient:
[2019-06-24] MEDS ORDERED: fentaNYL citrate 100 MCG/2 ML VIAL ONE ×2 (12:09→15:27)
[2019-06-24] MEDS ORDERED: MIDAZOLAM HCL 1 MG/ML 2ML VIAL ONE (12:09)
[2019-06-24] MEDS ORDERED: ACETAMINOPHEN 1000 MG/100 ML IV IV ONE (12:20)
[2019-06-24] MEDS: PIPERACILLIN/TAZOBACTAM 4.5 GM in DEXTROSE 5% 100 ML IV SCH ×3 (13:02→20:19)
[2019-06-24] MEDS ORDERED: fentaNYL citrate 100 MCG/2 ML VIAL IV PRN (13:10)
[2019-06-24] MEDS ORDERED: ATROPINE SULFATE 0.1 MG/ML 10ML SYR IV PRN (13:10)
[2019-06-24] MEDS ORDERED: ONDANSETRON INJ 2 MG/ML 2 ML VIAL IV PRN (13:10)
[2019-06-24] MEDS ORDERED: ePHEDrine sulfate 50 MG/ML AMP IV PRN (13:10)
[2019-06-24] MEDS ORDERED: HYDROmorphone INJ 1 MG/ML SYRINGE IV PRN ×2 (13:10→17:07)
[2019-06-24] MEDS ORDERED: BUPIVACAINE 0.5 % 5 MG/1 ML MPF 30ML VIAL ONE (13:37)
--- NOTE | 2019-06-24 14:15 | Operative Report ---
Post Operative Report Pre & Post Diagnosis Operation Date: 06/24/19 10:50 Pre-Op Diagnosis: Choledocholithiasis, common bile duct stones Post-Op Diagnosis: Choledocholithiasis, common bile duct stones Procedure Operation Date: 06/24/19 10:50 Actual Procedures p Endoscopic Retrograde Cholangiopancreatogram(Not Applicable) - Darcy Wynn MD s Laparoscopic Cholecystectomy(Not Applicable) - Kd Raman DO, FACS Surgeon Darcy Wynn MD [employer] Cutter Machine None Estimated Blood Loss 0 Findings See Below (CBD stones removed, CBD stents placed) Specimens None Description of Procedure ERCP I attest to the content of the Intraoperative Record and any orders documented therein. Any exceptions are noted below.
--- NOTE | 2019-06-24 14:26 | GI REPORT ---
Patient Name: Arely Dye Procedure Date: 06/24/2019 12:11 PM Date of : 1950 Admit Type: Inpatient Age: 68 Gender: Female Attending MD: Darcy Wynn MD Procedure: ERCP Providers: Darcy Wynn MD Referring MD: Bassam Raines M.d., Kd Raamn Do, Susan Holencik Indications: Abdominal pain of suspected biliary origin, Biliary dilation on Computed Tomogram Scan, Bile duct stone on Computed Tomogram Scan, Jaundice, Elevated liver enzymes Medicines: General Anesthesia Complications: No immediate complications. Estimated Blood Loss: Estimated blood loss: none. Procedure: Pre-Anesthesia Assessment: - Prior to the procedure, a History and Physical was performed, and patient medications and allergies were reviewed. The patient is competent. The risks and benefits of the procedure and the sedation options and risks were discussed with the patient. All questions were answered and informed consent was obtained. Patient identification and proposed procedure were verified by the physician and the nurse in the procedure room. Mental Status Examination: alert and oriented. Airway Examination: normal oropharyngeal airway and neck mobility. Respiratory Examination: clear to auscultation. CV Examination: normal. ASA Grade Assessment: III - A patient with severe systemic disease. After reviewing the risks and benefits, the patient was deemed in satisfactory condition to undergo the procedure. The anesthesia plan was to use general anesthesia. Immediately prior to administration of medications, the patient was re-assessed for adequacy to receive sedatives. The heart rate, respiratory rate, oxygen saturations, blood pressure, adequacy of pulmonary ventilation, and response to care were monitored throughout the procedure. The physical status of the patient was re-assessed after the procedure. After obtaining informed consent, the scope was passed under direct vision. Throughout the procedure, the patient's blood pressure, pulse, and oxygen saturations were monitored continuously. The scope was introduced through the mouth, and advanced to the duodenum and used to inject contrast into the bile duct. The ERCP was accomplished without difficulty. The patient tolerated the procedure well. Findings: The basketball scout film was normal. The esophagus was successfully intubated under direct vision. The scope was advanced to a normal major papilla in the descending duodenum without detailed examination of the pharynx, larynx and associated structures, and upper GI tract. The upper GI tract was grossly normal. The major papilla was large and bulging. A 0.035 inch straight Acrobat wire was passed into the biliary tree from the first attempt. The Fusion OMNI sphincterotome was passed over the guidewire and the bile duct was then deeply cannulated. Contrast was injected. I personally interpreted the bile duct images. Ductal flow of contrast was adequate. Image quality was adequate. Contrast extended to the main bile duct. The main bile duct was markedly dilated. The largest diameter was 15 mm. The lower third of the main bile duct contained multiple stones. Biliary sphincterotomy was made with a monofilament traction (standard) sphincterotome using ERBE electrocautery. There was no post-sphincterotomy bleeding. The biliary tree was swept with an 18 mm balloon starting at the bifurcation. Sludge was swept from the duct. Many stones ( around 15 dark pigmented stones) were removed. No stones remained. One 10 Fr by 10 cm and one 10 Fr by 8 cm plastic biliary stents with a single external flap and a single internal flap were placed into the common bile duct. Bile flowed through the stents. The stents were in good position. Indomethacin 100 mg was given via suppository to decrease the risk of post-ERCP pancreatitis (PEP). Impression: - The entire main bile duct was markedly dilated. - Choledocholithiasis was found. Complete removal was accomplished by biliary sphincterotomy and balloon extraction. - Two plastic biliary stents were placed into the common bile duct. Recommendation: - Return patient to hospital [facility] for ongoing care. - Repeat ERCP in 6 weeks to remove stent. - Avoid aspirin and nonsteroidal anti-inflammatory medicines for 5 days. Darcy Wynn MD 06/24/2019 2:25:49 PM This report has been signed electronically. Note Initiated On: 06/24/2019 12:11 PM Number of Addenda: 0 I attest to the content of the Intraoperative Record and orders documented therein, exceptions below {[id number]}
--- NOTE | 2019-06-24 14:41 | Fluoroscopy Report ---
[place] ERCP biliary ductal CLINICAL HISTORY: for ercppain. Nausea. COMPARISON STUDY: CT abdomen and pelvis 06/24/2019 FLUOROSCOPY TIME: 2 minutes 40 seconds NUMBER OF FLUOROSCOPIC IMAGES: 13 FINDINGS: Retrograde passage of a guidewire followed by balloon insufflation and sweeping of the comm on bile duct. This followed by placement of a common bile duct stent. IMPRESSION: 1. Successful balloon sweeping of the distended common bile duct. 2. Successful placement of a common bile duct stent. 3. Minimal/mild contrast extravasation. The above report was generated using voice recognition software. It may contain grammatical, syntax or spelling errors. Electronically signed by: Elia Pineda M.D. 06/24/2019 2:40 PM
[2019-06-24] MEDS ORDERED: PROPOFOL IV EMULSION 10 MG/ML 20 ML VIAL IV ONE (15:18)
[2019-06-24] MEDS ORDERED: GLYCOPYRROLATE 0.2 MG/ML VIAL ONE (15:18)
[2019-06-24] MEDS ORDERED: NEOSTIGMINE METHYLSULFATE 5 MG/5 ML SYR ONE (15:18)
[2019-06-24] MEDS ORDERED: ROCURONIUM BROMIDE 10 MG/ML 5 ML VIAL ONE (15:18)
[2019-06-24] MEDS ORDERED: LIDOCAINE HCL 2% 2 ML VIAL/AMP(20MG/ML) INFIL ONE (15:18)
[2019-06-24] MEDS ORDERED: PHENYLEPHRINE 100MCG/ML 5ML SYR ONE (15:18)
[2019-06-24] MEDS ORDERED: ONDANSETRON INJ 2 MG/ML 2 ML VIAL ONE (15:18)
--- NOTE | 2019-06-24 15:38 | Operative Report ---
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 Chronic cholecystitis and dilated cystic duct. Critical view of safety obtained, cystic duct divided using de la torre loaded Endo MEKA stapler, cystic artery clipped and divided. Specimens Gallbladder Anesthesia Type General Complications none Disposition Accompanied Patient To Recovery: No Disposition: Recovery Room Indications 68-year-old female presented to the emergency department with abdominal pain noted to have signs and symptoms of choledocholithiasis. She underwent an ERCP by GI and multiple stones were removed. Plan for laparoscopic cholecystectomy possible cholangiogram under the same anesthetic. The risks of the procedure were discussed, all questions were answered, and the patient agreed to proceed with surgery as planned. Description of Procedure The patient was properly identified, consented, and taken to the operating room where she was placed in the supine position. General endotracheal anesthesia was induced. SCDs and a safety belt were placed. Preoperative antibiotics were administered. The patient's abdomen was prepped and draped in the standard sterile fashion. A surgical timeout was performed and all parties were in agreement that this was the correct patient and procedure to be performed and we continued as planned. An incision was made superior and to the left of the umbilicus overlying the rectus muscle and the Veress needle was inserted. Saline drop test confirmed entry into the peritoneum. The abdomen was insufflated with carbon dioxide which the patient tolerated without incident. The abdomen was then entered using the Optiview technique and a 5 mm trocar. The laparoscope was inserted and no damage from initial trocar or Veress needle placement was noted. The abdomen was inspected and there appeared to be an anterior diaphragmatic defect with some omentum herniated into it. The omentum was reduced. This appeared to be consistent with a Morgagni's hernia. No other gross abnormalities were noted within the 4 quadrants of the abdomen. An 11 mm port was placed in the subxiphoid position and two 5 mm ports were then placed in the right subcostal position. The patient was placed in reverse Trendelenburg position and rotated towards the left. The gallbladder was significantly dilated but not tense. It was mildly and chronically inflamed. The thoracic cage was narrow making it difficult to retract. The dome of the gallbladder was retracted towards the left upper quadrant and the infundibulum was retracted toward the right lower quadrant revealing Calot's triangle. Peritoneal attachments were taken down with electrocautery and blunt dissection. The cystic duct and artery were circumferentially dissected. A window of safety was obtained showing the cystic duct entering the gallbladder with no aberrant structures noted. The cystic duct was dilated and a large stone was milked back into the gallbladder. The cystic duct was divided using a 45 mm de la torre loaded Endo MEKA stapler. The artery was doubly clipped and divided. The gallbladder was then lifted off the gallbladder fossa with electrocautery. The gallbladder was placed in an Endo Catch bag and removed through the subxyphoid port site. The right upper ruthie drant was irrigated and hemostasis was found to be good. 5 mm trochars were removed under direct visualization and the abdomen was allowed to collapse. The subxyphoid port site fascia was closed with 0 Vicryl suture. The wound was irrigated, and the skin of all ports was closed with 4-0 Monocryl subcuticular sutures. Dermabond was placed over the wounds. The patient was extubated in the operating room and taken to the PACU where she recovered without apparent incident. All sponge, instrument and needle counts were correct at the conclusion of the procedure. The patient tolerated the proc edure well. The physician's auction assistant was present and scrubbed for the entirety of the case and was essential in positioning the patient, prepping and draping, retraction and exposure, driving the laparoscope, removal of the gallbladder, closure the incisions, and placement of the dressings. I attest to the content of the Intraoperative Record and any orders documented therein. Any exceptions are noted below.
[2019-06-24] MEDS ORDERED: PROMETHAZINE HCL 12.5 MG in SODIUM CHLORIDE 0.9% 50 ML IV STA (16:15)
--- NOTE | 2019-06-24 16:57 | Anesthesiology Progress Note ---
Date of Service June 24, 2019 Anesthesia Post Procedure Vital Signs Vital Signs: Temp Pulse Pulse Pulse Resp BP BP 06/24/19 16:35 36.6 C 88 16 139/97 06/24/19 16:25 36.5 C 90 22 153/123 H 06/24/19 16:15 36.5 C 95 H 25 H 156/86 H 06/24/19 16:05 36.5 C 83 15 142/94 H 06/24/19 15:55 36.5 C 80 16 145/88 H 06/24/19 15:47 36.5 C 80 16 146/86 H 06/24/19 12:17 36.6 C 82 16 154/83 H 06/24/19 12:10 36.5 C 81 16 128/81 06/24/19 09:03 36.5 C 81 16 134/80 06/24/19 08:14 83 17 148/86 H 06/24/19 06:53 06/24/19 06:52 83 16 150/91 H 06/24/19 06:00 89 28 H 155/89 H 06/24/19 05:32 36.2 C L 113 H 26 H 162/93 H Pulse Ox 06/24/19 16:35 93 06/24/19 16:25 96 06/24/19 16:15 93 06/24/19 16:05 98 06/24/19 15:55 97 06/24/19 15:47 96 06/24/19 12:17 97 06/24/19 12:10 99 06/24/19 09:03 97 06/24/19 08:14 97 06/24/19 06:53 88 L 06/24/19 06:52 99 06/24/19 06:00 98 06/24/19 05:32 97 Pain Intensity Medial Ankle: Pain Intensity: 3 Upper Abdomen: Pain Intensity: 0 Transfer of Care Handoff Completed per policy Notes Mental Status: alert / awake / arousable Patient Amnestic to Procedure: Yes Nausea / Vomiting: adequately controlled Pain: adequately controlled Airway Patency, RR, SpO2: stable & adequate BP & HR: stable & adequate Hydration State: stable & adequate Anesthetic Complications: no major complications apparent and Pt Satisfied with anesthetic care Notes: The patient had PONV. She was treated with Zofran and Phenergan and is feeling better now.
[2019-06-25] MEDS: PIPERACILLIN/TAZOBACTAM 4.5 GM in DEXTROSE 5% 100 ML IV SCH ×3 (05:41→20:36)
[2019-06-25] MEDS: D5W AND 1/2NSS 1,000 ML IV SCH ×2 (05:42→10:16)
[2019-06-25 07:11] LABS: Eosinophils # (auto) 0.01 K/uL (0-0.5); Eosinophils % (auto) 0.1 %; Hematocrit (blood only) 36.7 % (37-47); Hemoglobin 12.4 g/dL (12.0-16.0); Immature Granulocytes # (auto) 0.01 K/uL (0.00-0.02); Immature Granulocytes % (auto) 0.1 %; Lymphocytes # (auto) 1.29 K/uL (1.2-3.4); Lymphocytes % (auto) 15.1 %; Mean Corpuscular Hemoglobin 32.5 pg (25-34); Mean Corpuscular Hgb Conc 33.8 g/dL (32-36); Mean Corpuscular Volume 96.1 fL (80-100); Monocytes # (auto) 1.09 K/uL (0.11-0.59); Monocytes % (auto) 12.7 %; Neutrophils # (auto) 6.17 K/uL (1.4-6.5); Platelet Count 197 K/uL (130-400); RDW Coefficient of Variation 14.6 % (11.5-14.5); RDW Standard Deviation 51.4 fL (36.4-46.3); Red Blood Count 3.82 M/uL (4.2-5.4); White Blood Count 8.57 K/uL (4.8-10.8)
--- NOTE | 2019-06-25 07:47 | Anesthesiology Progress Note ---
Date of Service June 25, 2019 Anesthesia Post Procedure Vital Signs Vital Signs: Temp Pulse Pulse Resp BP BP Pulse Ox 06/25/19 07:30 37 C 92 H 20 129/76 94 06/25/19 03:55 37.2 C 90 17 110/70 93 06/24/19 23:45 36.8 C 85 17 116/71 95 06/24/19 20:05 36.7 C 83 17 125/79 95 06/24/19 19:05 36.7 C 84 17 148/80 H 95 06/24/19 18:06 36.4 C L 86 16 141/84 H 93 06/24/19 18:05 36.6 C 81 20 137/76 97 06/24/19 17:35 36.6 C 81 18 130/81 96 06/24/19 16:35 36.6 C 88 16 139/97 93 06/24/19 16:25 36.5 C 90 22 153/123 H 96 06/24/19 16:15 36.5 C 95 H 25 H 156/86 H 93 06/24/19 16:05 36.5 C 83 15 142/94 H 98 06/24/19 15:55 36.5 C 80 16 145/88 H 97 06/24/19 15:47 36.5 C 80 16 146/86 H 96 06/24/19 12:17 36.6 C 82 16 154/83 H 97 06/24/19 12:10 36.5 C 81 16 128/81 99 06/24/19 09:03 36.5 C 81 16 134/80 97 06/24/19 08:14 83 17 148/86 H 97 Pain Intensity Medial Ankle: Pain Intensity: 0 Upper Abdomen: Pain Intensity: 1 Notes Mental Status: alert / awake / arousable and participated in evaluation Patient Amnestic to Procedure: Yes Nausea / Vomiting: adequately controlled Pain: adequately controlled Airway Patency, RR, SpO2: stable & adequate BP & HR: stable & adequate Hydration State: stable & adequate Anesthetic Complications: no major complications apparent
[2019-06-25 07:55] LABS: Bilirubin,Total 4.1 mg/dl (0.2-1); Calcium 8.8 mg/dl (8.5-10.1); Creatinine Clr Calc Pharmacy 81.6 ml/min; Est GFR (African American) 98.1; Est GFR (Non-African American) 84.6; Magnesium 1.9 mg/dl (1.8-2.4); Potassium 3.7 mmol/L (3.5-5.1)
[2019-06-25 07:56] LABS: Albumin Globulin Ratio 0.8 (0.9-2); Albumin Level 2.7 gm/dl (3.4-5.0); Globulin 3.6 gm/dl (2.5-4.0); Total Protein 6.3 gm/dl (6.4-8.2)
--- NOTE | 2019-06-25 08:27 | Surgery Progress Note ---
Date of Service June 25, 2019 Assessment & Plan (1) Choledocholithiasis: POD#1 laparoscopic cholecystectomy doing well advance diet as tolerated Tbili up mildly, but other LFTs downtrending will need follow up with GI as outpatient for stent removal transition to PO pain medication Supervising Physician Co-Signing Physician Notes Patient seen and examined, labs and imaging reviewed, agree with above. POD #1 ERCP and lap scopic cholecystectomy. Overall doing well, feels much better. She is sore at her epigastric incision site which is expected. Abdomen soft, probably tender, incisions healing well. Total bilirubin slightly elevated but remainder of LFTs are downtrending. Diet as tolerated, likely discharge tomorrow if liver labs improving. Subjective Patient awake/alert this AM with no acute events overnight. Has some incisional pain, in particular with movement or coughing but is otherwise controlled. She tolerated clear liquid diet overnight and is hungry this AM. She denies any nausea/vomiting. Passing flatus this morning. Physical Exam Physical Exam: awake/alert Constitutional: well developed and well nourished; no acute distress Respiratory: normal respiratory effort; no respiratory distress Gastrointestinal (Abdomen): Inspection/Auscultation: + abdominal surgical incision (c/d/i with dermabond overtop. Some ecchymosis around epigastric incision) Percussion/Palpation: + abdomen tender (mildly xochitl-incisionally) and abdomen soft Results & Data Vital Signs (Past 12 Hours) Vital Signs Temp Pulse Pulse Resp BP BP Pulse Ox 06/25/19 07:30 37 C 92 H 20 129/76 94 06/25/19 03:55 37.2 C 90 17 110/70 93 06/24/19 23:45 36.8 C 85 17 116/71 95 PG Care Time/CCT Total # of Minutes Spent Total Time Spent with Patient: Total time spent is greater than 50% in coordination of care (as documented) at patient's floor/unit and/or counseling patient:
--- NOTE | 2019-06-25 08:48 | Gastroenterology Progress Note ---
Date of Service June 25, 2019 Assessment & Plan (1) Choledocholithiasis: Pt is a 68 y/o female presented w jaundice, abd pain, labs notable for elevated LFTs, Lipase and CT evidence of distended gallbladder w stones, sludge, dilated CBD 2cm and choledocholithiasis. ? enteritis though she denies loose stools. She underwent ERCP for choledocholithiasis removal and biliary stents placement, lap cholecystectomy on 06/24/19. Did well post procedures, LFTs trending down. - Advance diet as tolerated - Avoid NSAIDs or ASA 5 days after ERCP - We will help schedule repeat ERCP in 6 week's time to remove biliary stents - Continue IV antibx - Please recall GI as needed Supervising Physician Co-Signing Physician Notes I performed a history and physical examination of the patient, including specifically on physical exam - soft, nontender abdomen. I have discussed the patient's management with Samantha. Please refer to the nurse practitioner's note for the documented findings and plan of care. Doing better. Repeat LFTs tomorrow. Recall if needed. Subjective Pt did well overnight. Some upper area abd pain, but denies any n/v, feels hungry and ready for solids. She is passing flatus, no BMs yet. LFTs w mild increase of Tbili but rest of transaminases and alk phos decreasing. Review of Systems Review of Systems: All systems reviewed & are unremarkable except as noted in HPI & below Physical Exam Constitutional: WD/WN, vitals as above well groomed, cooperative and comfortable Eyes: PERRL, conjunctivae normal, anicteric sclerae ENMT: external ear and nose normal, oropharynx normal Respiratory: normal respiratory effort, lungs clear to auscultation Cardiovascular: RRR, no murmur, no edema Gastrointestinal (Abdomen): Inspection/Auscultation: normal bowel sounds Percussion/Palpation: + abdomen tender (at surgical incision site ) and abdomen soft Skin: no rashes, warm and dry no jaundice Psychiatric: A+Ox3, euthymic affect Lymphatic: no lymphedema Results & Data Vital Signs (Past 12 Hours) Vital Signs Temp Pulse Pulse Resp BP BP Pulse Ox 06/25/19 07:30 37 C 92 H 20 129/76 94 06/25/19 03:55 37.2 C 90 17 110/70 93 06/24/19 23:45 36.8 C 85 17 116/71 95
[2019-06-25] MEDS ORDERED: ACETAMINOPHEN 325 MG TAB PO PRN (09:11)
[2019-06-25] MEDS ORDERED: IBUPROFEN 200 MG TAB PO PRN (09:12)
--- NOTE | 2019-06-25 10:24 | Hospitalist Progress Note ---
Date of Service June 25, 2019 Assessment & Plan (1) Choledocholithiasis: Transaminitis s/p Endoscopic Retrograde Cholangiopancreatogram (ERCP with 2 stents placed in common bile duct) and s/p Laparoscopic Cholecystectomy on 06/24/19 -patient presented to the emergency room on 06/24/19 with several days of abdominal pain and on imaging found to have: Distended gallbladder containing a considerable number of gallbladder polyps, sludge, versus gallstones. Distended biliary ductal system with a maximum extra hepatic common bile duct dimension of 2 cm. Debris and small gallstones within the mid to distal common bile duct consistent with choledocholithiasis. Moderate superimposed small bowel enteritis. 1.3 cm indeterminate density left renal lesion. A multiphase CT follow-up at a later date is suggested -also presented with elevated liver function enzymes and akaline phosphatase carlos t correlates with biliary obstruction -patient was started empirically on IV Zosyn and blood cultures were drawn -after Gastroenterology and general surgery evaluations were completed, patient was brought to operating room and had Endoscopic Retrograde Cholangiopancreatogram (ERCP with 2 stents placed in common bile duct) and s/p Laparoscopic Cholecystectomy with subsequent return to medical bach after Postoperative state -as of 06/25/19: diet is to be advanced; gastroenterology service recommending to avoid aspirin and NSAID for next 5 days from time of ERCP and that patient will need repeat ERCP in 6 weeks for stent removal; and gastroenterology service to continue IV antibiotics for now; current blood cultures from 06/24/19 are no growth; transaminitis is downtrending; continue to monitor patient in the hospital Hypokalemia -admission serum potassium 3.2 -serum potassium is 3.7 on 06/25/19 -giving IV magnesium to optimize serum magnesium to target 2 History of right hip -Operation Date: 01/05/19 07:30 Open Reduction Internal Fixation Right Hip with an intramedullary trochanteric fixation nail -patient reports she has been able to ambulate after the ERCP and Cholecystectomy ; PT/OT evaluations Left renal lesion - an incidental 1.3 cm indeterminate density left renal lesion noted -A multiphase CT follow-up as outpatient recommended DVT prophylaxis: SCDs for now Full Code Daughter Meli [phone] Subjective Patient feeling well after both Endoscopic Retrograde Cholangiopancreatogram (ERCP with 2 stents placed in common bile duct) and s/p Laparoscopic Cholecystectomy yesterday. Patient on room air. breathing comfortably. no distress. she was able to tolerate clear liquid diet. no vomiting. no acute abdomen pain today. no fevers at this time. no dizziness. no lightheadedness. no chest pain. no palpitations. updated patient's daughter by telephone at patient's request Physical Exam Constitutional: comfortable Eyes: PERRL, conjunctivae normal, anicteric sclerae EOM intact bilaterally ENMT: external ear and nose normal, oropharynx normal Neck: normal visual inspection Respiratory: normal respiratory effort, lungs clear to auscultation Cardiovascular: RRR, no murmur, no edema Chest (Breasts): Chest: normal inspection of chest Gastrointestinal (Abdomen): soft, nontender, laproscopic incisions are closed Musculoskeletal: Head/Neck/Chest: normocephalic and head atraumatic Skin: no rashes, warm and dry Neurologic: PERRL, EOMI, accommodation nl, no face palsy, no dysarthria CN 's II-XI intact bilaterally Psychiatric: A+Ox3, euthymic affect Results & Data Vital Signs (Past 12 Hours) Vital Signs Temp Pulse Pulse Resp BP BP Pulse Ox 06/25/19 07:30 37 C 92 H 20 129/76 94 06/25/19 03:55 37.2 C 90 17 110/70 93 06/24/19 23:45 36.8 C 85 17 116/71 95
[2019-06-25] MEDS ORDERED: MAGNESIUM SULFATE / D5W 1 GM/100 ML BAG IV ONE (10:30)
[2019-06-25] MEDS: TRAMADOL HCL 50 MG TABLET PO PRN (16:26)
[2019-06-25] MEDS: ONDANSETRON INJ 2 MG/ML 2 ML VIAL IV PRN ×2 (16:26→23:30)
[2019-06-25] MEDS ORDERED: Nursing to Pharmacy Communication ONE (20:51)
[2019-06-25] MEDS ORDERED: CHLORASEPTIC 1.4% SOLN 180 ML BTL MT PRN (21:04)
[2019-06-26] MEDS: METOCLOPRAMIDE HCL INJ 5 MG/ML 2 ML VIAL IV PRN ×2 (00:44→09:26)
[2019-06-26] MEDS ORDERED: LORazepam 1 MG TAB PO STA (01:11)
[2019-06-26] MEDS: TRAMADOL HCL 50 MG TABLET PO PRN (04:49)
[2019-06-26] MEDS: ONDANSETRON INJ 2 MG/ML 2 ML VIAL IV PRN (05:10)
[2019-06-26] MEDS: PIPERACILLIN/TAZOBACTAM 4.5 GM in DEXTROSE 5% 100 ML IV SCH ×3 (05:11→20:23)
[2019-06-26 06:41] LABS: Hematocrit (blood only) 39.9 % (37-47); Hemoglobin 13.3 g/dL (12.0-16.0); Mean Corpuscular Volume 97.1 fL (80-100); Red Blood Count 4.11 M/uL (4.2-5.4); White Blood Count 11.83 K/uL (4.8-10.8)
[2019-06-26 06:42] LABS: Basophils # (auto) 0.01 K/uL (0-0.2); Basophils % (auto) 0.1 %; Eosinophils # (auto) 0.01 K/uL (0-0.5); Eosinophils % (auto) 0.1 %; Immature Granulocytes # (auto) 0.03 K/uL (0.00-0.02); Immature Granulocytes % (auto) 0.3 %; Lymphocytes # (auto) 1.33 K/uL (1.2-3.4); Lymphocytes % (auto) 11.2 %; Mean Corpuscular Hemoglobin 32.4 pg (25-34); Mean Corpuscular Hgb Conc 33.3 g/dL (32-36); Mean Platelet Volume 11.4 fL (7.4-10.4); Monocytes # (auto) 0.76 K/uL (0.11-0.59); Monocytes % (auto) 6.4 %; Neutrophils # (auto) 9.69 K/uL (1.4-6.5); Neutrophils % (auto) 81.9 %; Platelet Count 224 K/uL (130-400); RDW Coefficient of Variation 14.9 % (11.5-14.5); RDW Standard Deviation 53.1 fL (36.4-46.3)
[2019-06-26 07:12] LABS: Albumin Level 2.9 gm/dl (3.4-5.0); BUN Creatinine Ratio 12.3 (10-20); Calcium 8.8 mg/dl (8.5-10.1); Creatinine Clr Calc Pharmacy 67.7 ml/min; Est GFR (African American) 78.2; Est GFR (Non-African American) 67.5; Magnesium 2.1 mg/dl (1.8-2.4); Potassium 3.8 mmol/L (3.5-5.1)
[2019-06-26 07:17] LABS: Albumin Globulin Ratio 0.7 (0.9-2); Bilirubin,Total 2.6 mg/dl (0.2-1); Globulin 4.4 gm/dl (2.5-4.0); Total Protein 7.3 gm/dl (6.4-8.2)
--- NOTE | 2019-06-26 10:41 | Surgery Progress Note ---
Date of Service June 26, 2019 Assessment & Plan (1) Choledocholithiasis: POD#2 Laparoscopic cholecystectomy Endorsed nausea overnight, somewhat improving this AM but not gone. LFTs downtrending, Tbili: 2.6 from 4.1 yesterday. WBC up mildy to 11.8, patient remains afebrile Okay to continue po pain & prn anti-emetics Encourage activity Can check on her again this afternoon Supervising Physician Co-Signing Physician Notes Patient seen and examined, labs reviewed, agree with above. Some nausea overnight along with mild tachycardia, may have been related to pain medications. WBC slightly elevated this morning but liver enzymes downtrending. This afternoon she appears much better than she did this morning, tolerating diet. We will continue to monitor for another day, she is feeling well tomorrow and her vital signs and labs continue to improve, then she may be discharged home. Subjective Patient states she was dealing with nausea overnight, but had no bouts of emesis. Prior to this she tolerated dinner without any issues. Has a history of nausea with narcotics, however the nausea was was not congruent with when she received the Tramadol. She did take her narcotic with zofran x2 without issues. She is passing flatus but has not had a bowel movement yet. Review of Systems Gastrointestinal: + nausea Physical Exam Physical Exam: sleepy but easily arousable Constitutional: well developed and well nourished Gastrointestinal (Abdomen): Inspection/Auscultation: + abdomen distended (mild) and + abdominal surgical incision (c/d/i, with dermabond overtop. some ecchymosis of epigastric incision) Percussion/Palpation: + abdomen tender (mildly tender xochitl-incisionally) and abdomen soft Results & Data Vital Signs (Past 12 Hours) Vital Signs Temp Pulse Pulse Resp BP BP Pulse Ox 06/26/19 07:45 36.8 C 103 H 20 132/82 90 06/26/19 00:50 37.4 C 98 H 20 143/83 H 91 06/25/19 23:45 37.0 C 101 H 17 126/77 90 PG Care Time/CCT Total # of Minutes Spent Total Time Spent with Patient: Total time spent is greater than 50% in coordin ation of care (as documented) at patient's floor/unit and/or counseling patient:
--- NOTE | 2019-06-26 18:18 | Hospitalist Progress Note ---
Date of Service June 26, 2019 Assessment & Plan (1) Hyperbilirubinemia: 2/2/ choledocholithiasis, trending down (2) Choledocholithiasis: s/p ERCP with stent placement and lap dulce maria, POD#2. She had some post- operative nausea thought secondary to pain medications given onvernight. She feels improved and I rechecked on her later in the day. She reported to the nurse resolution of nausea and had been tolerating PO. Cont supportive care. Low threshold for KUB overnight if nausea returns especially if associated with emesis. (3) Nausea: Antiemetics PRN. Dilaudid IV was stopped. Cont supportive care. Low threshold for KUB as above. (4) DVT prophylaxis: SCDs, would add chemoprophylaxis after OK with general surgery. Full Dispo-home when medically stable. Luba Pride DO [facility] Hospitalist Subjective POD #2 s/p lap dulce maria and ERCP. Appears to be doing OK although she was having some significant nausea overnight and has frequent eructation today. She is going to try some liquids this afternoon and continue to advance her diet as tolerated. She is constipated reporting no BM since admission. She declines a suppository at this time. She otherwise denies abdominal pain and feels she is healing well. No other symptoms at this time. Review of Systems Review of Systems: All systems reviewed & are unremarkable except as noted in HPI & below Physical Exam Physical Exam: CONSTITUTIONAL: WNWD, vitals as above, generally well- appearing EYES: normal conjunctivae, no scleral icterus ENT: MMM RESPIRATORY: clear to auscultation bilaterally, no crackles, rales or wheezes, normal respiratory effort CARDIOVASCULAR: regular rate and rhythm, S1 and 2 heard without murmurs, gallops or rubs, no JVD, no peripheral edema GASTROINTESTINAL: normal bowel sounds, soft, nontender, nondistended MUSCULOSKELETAL: strength 5/5 throughout, head is normocephalic and atraumatic SKIN: warm and dry, incision sites on abdomen are closed without surrounding erythema. NEUROLOGIC: CN 2-12 grossly intact, no gross focal deficits. PSYCHIATRIC: alert cooperative and oriented to person, place and time. Results & Data Vital Signs (Past 12 Hours) Vital Signs Temp Pulse Pulse Resp BP Pulse Ox 06/26/19 15:26 37.3 C 89 16 120/75 93 06/26/19 07:45 36.8 C 103 H 20 132/82 90 Laboratory Results Short CBC 06/26/19 Range/Units 05:08 WBC 11.83 H (4.8-10.8) K/uL Hgb 13.3 (12.0-16.0) g/dL Hct 39.9 (37-47) % Plt Count 224 (130-400) K/uL BMP 06/26/19 05:08 Sodium 138 Potassium 3.8 Chloride 105 Carbon Dioxide 25 BUN 11 Creatinine 0.88 Glucose 160 H Calcium 8.8 Liver Function 06/26/19 Range/Units 05:08 Total Bilirubin 2.6 H (0.2-1) mg/dl AST 68 H (15-37) U/L ALT 139 H (12-78) U/L Alkaline Phosphatase 253 H (45-117) U/L Albumin 2.9 L (3.4-5.0) gm/dl Medications Administered Current Inpatient Medications Acetaminophen (Tylenol) 650 mg PO Q4H PRN PRN Reason: Pain Stop: 07/25/19 09:10 Last Admin: 06/25/19 09:50 Dose: 650 mg Documented by: Hydromorphone HCl (Dilaudid) 0.5 mg IV Q4H PRN PRN Reason: Moderate Pain Stop: 07/08/19 17:06 Last Admin: 06/25/19 23:36 Dose: 0.5 mg Documented by: Piperacillin Sod/Tazobactam (Sod 4.5 gm/ Dextrose) 120 mls @ 30 mls/hr IV Q8H [facility]; Protocol Stop: 07/04/19 11:59 Last Infusion: 06/26/19 15:58 Dose: Infused Documented by: Metoclopramide HCl (Reglan) 10 mg IV Q6H PRN PRN Reason: Nausea Stop: 07/24/19 07:53 Last Admin: 06/26/19 09:26 Dose: 10 mg Documented by: Miscellaneous Information (Consult) 1 ea N/A UD PRN PRN Reason: Consult Stop: 07/24/19 06:47 Ondansetron HCl (Zofran) 4 mg IV Q6H PRN PRN Reason: Nausea Stop: 07/24/19 17:06 Last Admin: 06/26/19 05:10 Dose: 4 mg Documented by: Phenol (Chloraseptic 1.4% [place]) 1 sprays MT PRN PRN PRN Reason: Sore Throat Stop: 07/25/19 21:03 Polyethylene Glycol (Miralax Powder Packet) 17 gm PO DAILY PRN PRN Reason: Constipation Stop: 07/24/19 07:54 Last Admin: 06/25/19 23:32 Dose: 17 gm Documented by: Tramadol HCl (Ultram) 50 mg PO Q6H PRN PRN Reason: Moderate Pain Stop: 07/25/19 15:22 Last Admin: 06/26/19 04:49 Dose: 50 mg Documented by:
[2019-06-27] MEDS: PIPERACILLIN/TAZOBACTAM 4.5 GM in DEXTROSE 5% 100 ML IV SCH ×2 (04:34→12:17)
[2019-06-27 07:18] LABS: Basophils # (auto) 0.02 K/uL (0-0.2); Basophils % (auto) 0.2 %; Eosinophils # (auto) 0.21 K/uL (0-0.5); Eosinophils % (auto) 2.5 %; Hematocrit (blood only) 35.2 % (37-47); Hemoglobin 11.4 g/dL (12.0-16.0); Immature Granulocytes # (auto) 0.01 K/uL (0.00-0.02); Immature Granulocytes % (auto) 0.1 %; Lymphocytes # (auto) 2.47 K/uL (1.2-3.4); Mean Corpuscular Hemoglobin 31.5 pg (25-34); Mean Corpuscular Hgb Conc 32.4 g/dL (32-36); Mean Corpuscular Volume 97.2 fL (80-100); Mean Platelet Volume 10.7 fL (7.4-10.4); Monocytes # (auto) 0.78 K/uL (0.11-0.59); Monocytes % (auto) 9.2 %; Neutrophils # (auto) 5.03 K/uL (1.4-6.5); Platelet Count 205 K/uL (130-400); RDW Coefficient of Variation 14.7 % (11.5-14.5); RDW Standard Deviation 52.6 fL (36.4-46.3); Red Blood Count 3.62 M/uL (4.2-5.4); White Blood Count 8.52 K/uL (4.8-10.8)
[2019-06-27 07:52] LABS: Albumin Level 2.4 gm/dl (3.4-5.0); BUN Creatinine Ratio 15.4 (10-20); Bilirubin Direct 0.5 mg/dl (0-0.2); Calcium 8.6 mg/dl (8.5-10.1); Creatinine Clr Calc Pharmacy 87.6 ml/min; Est GFR (African American) 104.2; Est GFR (Non-African American) 89.9; Potassium 3.7 mmol/L (3.5-5.1)
[2019-06-27 07:57] LABS: Bilirubin,Total 1.2 mg/dl (0.2-1); Total Protein 6.2 gm/dl (6.4-8.2)
--- NOTE | 2019-06-27 10:31 | Surgery Progress Note ---
Date of Service June 27, 2019 Assessment & Plan (1) Choledocholithiasis: POD#3 laparoscopic cholecystectomy WBC and LFTs downtrending nausea much improved since yesterday and patient is tolerating a regular diet pain well managed with tylenol alone surgical incisions c/d/i would continue to encourage activity to ensure safe for discharge to home okay for discharge from surgical standpoint later today vs tomorrow pending medicine recommendations Supervising Physician Co-Signing Physician Notes Patient seen and examined, agree with above. POD #2 ERCP and cholecystectomy, doing well, pain controlled, tolerating regular diet. Bilirubin improved. Heart rate improving. Discharged home, follow-up in 2 weeks in surgery clinic, activity restrictions and wound care instructions given, return precautions giv en, call with questions or concerns. Subjective Patient sitting up finishing breakfast. No further episodes of nausea and is tolerating a regular diet. Has some expected post surgical pain but is controlled with Tylenol. She is passing gas, but has not had a bowel movement. She has been out of bed to chair often however has not ambulated the halls much. Physical Exam Physical Exam: awake/alert/sitting up in bed Constitutional: well developed and well nourished; no acute distress Gastrointestinal (Abdomen): Inspection/Auscultation: + abdominal surgical incision (c/d/i with dermabond overtop. ecchymosis of epigastric incision) Percussion/Palpation: + abdomen tender (mildy xochitl-incisionally) and abdomen s oft Results & Data Vital Signs (Past 12 Hours) Vital Signs Temp Pulse Pulse Resp BP Pulse Ox 06/27/19 07:09 37.2 C 93 H 16 133/85 93 06/26/19 22:56 36.8 C 97 H 16 117/72 92 PG Care Time/CCT Total # of Minutes Spent Total Time Spent with Patient: Total time spent is greater than 50% in coordination of care (as documented) at patient's floor/unit and/or counseling patient:
[2019-06-27] MEDS ORDERED: POLYETHYLENE (MIRALAX) 17 GM PACK PO ONE (10:41)
--- NOTE | 2019-06-27 10:58 | Discharge Summary ---
Date of Service June 27, 2019 Admission HPI Per Admitting Provider The is a 68 year old female with past medical history of right hip fracture repair in December 2018 who has been having since Monday06/21/2019 abdominal discomfort and pain which has been coming and going. Patient reports that abdominal pain is towards midline down the belly. She denies vomiting or fever at home. She has been able to make bowel movements. She denies anterior chest pain or back pain. She denies recent problems with breathing. She does not take any medications at home besides vitamin Biotin and occasional acetaminophen. Admission Exam Per Admitting Provider Constitutional: comfortable Eyes: PERRL, conjunctivae normal, anicteric sclerae EOM intact bilaterally ENMT: external ear and nose normal, oropharynx normal Neck: normal visual inspection Respiratory: normal respiratory effort, lungs clear to auscultation Cardiovascular: RRR, no murmur, no edema Chest (Breasts): Chest: normal inspection of chest Gastrointestinal (Abdomen): at time of my exam, patient had received pain medications recently and no acute tenderness elicited on palpation of abdomen. abdomen is soft and non distended. bowel sounds audible Musculoskeletal: Head/Neck/Chest: normocephalic and head atraumatic Skin: no rashes, warm and dry Neurologic: PERRL, EOMI, accommodation nl, no face palsy, no dysarthria CN's II-XI intact bilaterally Psychiatric: A+Ox3, euthymic affect Principal Diagnosis choledocholithiasis s/p ERCP with CBD stent placement cholelithiasis s/p laparoscopic cholecystectomy Discharge Data Allergies Allergy/AdvReac Type Severity Reaction Status Date / Time sulfamethoxazole Allergy Severe SWELLING Verified 06/24/19 05:57 [From Bactrim] OF THROAT, RASH trimethoprim [From Bactrim] Allergy Severe SWELLING Verified 06/24/19 05:57 OF THROAT, RASH MOST PAIN MEDS AdvReac Intermediate Vomiting Uncoded 06/24/19 05:57 Consultations 06/24/19 06:33 Consult General Surgery Stat ED Decision to Admit Stat 06/24/19 07:36 Consult Gastroenterology Stat 06/25/19 07:15 Consult Case Management - Discharge Planning Routine Procedures Performed Operation Date: 06/24/19 10:50 Actual Procedures s Endoscopic Retrograde Cholangiopancreatogram(Not Applicable) - Darcy Wynn MD p Laparoscopic Cholecystectomy(Not Applicable) - Kd M. Chambers, DO, FACS Ordered Studies 06/24/19 05:48 CT abd pelvis IV con only Urgent 06/24/19 08:40 FL ERCP biliary ductal Routine Hospital Course (1) Choledocholithiasis: 68-year-old female presented to the ER with epigastric area abdominal pain. She was jaundiced with labs revealing a mile leukocytosis of 10.8, elevated LFTs and lipase with a T bili of 3.6, AST 142, ALT 250, alk phos 250, lipase 460. [facility]os[facility]. Blood cultures were drawn and ultimately negative at time of discharge. GI was consulted and recommended an ERCP which was performed on 06/[address] Wynn with [facility]. Choledocholithiasis was observed and removed and common bile duct stents were placed. General Surgery was consulted and performed a laparoscopic cholecystectomy on 06/24/[address] Raman. 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 Chronic cholecystitis and dilated cystic ducts were also seen. She was returned to the bach and continued to progress well clinically. IV antibiotics were continued. On postop day 1 she suffered some significant nausea but this resolved with supportive care only. On postop day 3 she was stable for discharge. She was mentating and ambulating at baseline and tolerating solid food without difficulty. PT and OT had evaluated her for safety to return home and she was cleared from their perspective. At time of discharge a [id number] examination was performed revealing a hemodynamically stable and afebrile patient in no acute distress. Heart and lung exam were normal and no jaundice or scleral icterus were noted. Abdominal exam was soft, nontender and nondistended with multiple laparoscopic incision sites that were well-healed without surrounding erythema. She was sent home in stable condition with close primary care follow-up recommended within 1 week, and general surgery follow-up within 1 week with noted activity restrictions on discharge instruction sheet, and a follow-up recommended in 6 weeks with [facility] for repeat ERCP and stent removal. She did have an incidental finding on a CT of the abdomen pelvis with IV contrast performed while she was hospitalized. There was a 1.3 cm indeterminate density of the left kidney that was noted, for which a multiphase CT for follow-up was recommended. Lab work performed on day of discharge revealed a complete resolution of leukocytosis, H&H of 11.4/35.2, normal BMP, total bili 1.2, AST 31, ALT 87. Total Time Total Time Spent Total Time Spent (In Minutes): 60 Total Time Includes: Examination of the Patient, Discharge Planning, Medication Reconciliation, Communication With Other Providers and Other (follow-up appointment scheduled) Discharge Plan Discharge Items Patient Disposition: Home - Self-Care Reason For Visit: GALLSTONES, BILIARY DILITATION Discharge Diagnosis: choledocholithiasis Condition on Discharge: Good Activity: Per Instructions section Lifting: No more than 10 pounds Bathing Comment: you may shower starting today Exercise/Sports: Wait until after follow-up appointment Exercise Comment: no PT sessions until after surgery follow-up in one week. Driving/Machine Use: Resume 3 days after discharge Weightbearing: Full weightbearing Non-emergency contact: Primary Care Provider Call non-emergency contact if: you have any medication questions, your symptoms worsen, your pain is not controlled, your pain is worsening, your pain is unusual for you, your pain is concerning for you and you have a fever Follow-up/Referrals: Kd Raman DO, [facility] [Physician] - (Please follow up in clinic within 2 weeks. You may call the office sooner if you have any questions/concerns.) Soraida John DO [Primary Care Provider] - Diet: Regular Addtl Attending Provider Instructions: Please use Tylenol as needed for post-operative pain control. Please do not exceed more than 3000mg in 24 hours. You are also being given Tramadol to take for any severe pain. Please contact [facility] General Surgery to make a one week follow-up appointment with Dr. Raman. Please follow all post-operative activity restrictions until that time. You have the following appointment scheduled: 07/01/2019 1:00 PM Soraida John DO [facility] On a CT scan while admitted, there was a 1.3 cm indeterminate density left renal lesion that was seen. A multiphase CT follow-up at a later date is suggested, which can be ordered by your primary care physician at time of follow-up. You will need to contact [facility] for a repeat ERCP in 6 weeks to remove stent. Please avoid aspirin and nonsteroidal anti-inflammatory med icines for 5 days. It was a pleasure taking care of you! Please call if you have any questions or problems. You can reach a [facility] hospitalist on duty at [facility] 24 hours a day by calling [phone]. Take care of yourself. Luba Pride, [facility] Pending Studies at Discharge: No Stand-Alone Forms: Call Back Authorization, My [facility] Medications and DC Order Prescriptions: New tramadol [Ultram] 50 mg tablet 50 - 100 mg PO Q4H PRN (Reason: pain) Qty: 15 RF: 0 Continued biotin 1 mg Tablet PO DAILY RF: 0 Discontinued acetaminophen [Tylenol Extra Strength] 500 mg Tablet 1,000 mg PO QID PRN (Reason: Pain) RF: 0 Discharge Orders: Discharge Order (Routine); Ordered 06/27/19 Ordered By: Luba Pride Admission Data Admit Date/Time: 06/24/19 07:57 Attending Provider: Luba Pride Admit Provider: Bassam Raines Primary Care Provider: Soraida John Other Providers: Shelby Traylor ; Larisa Martinez ; Tati Curtis ; Blake Gonzalez ; Venu Aguilera ; John Kaur ; Chastity Coronel ; Steven Valdes ; Christ Salmon ; Shaunna Pastrana ; Zuly Salcido ; Samantha Centeno ; Fatmata Maddox ; Darcy Wynn ; Toni Correa ; Marciano Fallon
== END 2019-06-27 13:56 | disposition home health service (06) | DRG 418 ==
LOC: ED 05:28 → SUATTDRO 07:57 → 2W 07:57 → 3W 15:50
DX: Z88.1 Allergy status to other antibiotic agents; K52.9 Noninfective gastroenteritis and colitis, unspecified; K80.70 Calculus of gallbladder and bile duct without cholecystitis without obstruction; E87.6 Hypokalemia; R17 Unspecified jaundice; Z98.51 Tubal ligation status; Z87.891 Personal history of nicotine dependence; Z82.49 Family history of ischemic heart disease and other diseases of the circulatory system